=== PATIENT | female | born 1990 | race Caucasian/White ===

== ENCOUNTER 2022-12-26 11:50 | Emergency (ER) | payer OTHER ==
--- OUTSIDE RECORDS SUMMARY | 2022-12-26 11:55 | XMS REPORT | Continuity of Care Document ---
:1990 Author Organization [facility] t Address [address] [place] [address] [address] [place] [address] Care Team Providers Name Role Phone Asked, No Pcp Primary Care Physician Unavailable MD LANDRY PLASCENCIA Attending Clinician Unavailable LANDRY PLASCENCIA Attending Clinician Unavailable SEA DELATORRE Attending Clinician Unavailable Jose L Arambula Attending Clinician BeltranAncelmo Attending Clinician MALLIKA ALFORD Admitting Clinician Unavailable SEA DELATORRE Admitting Clinician Unavailable Problems Condition Condition Condition Status Onset Resolution Last Treating Co mments Source Name Details Category Date Date Treatment Clinician Date Acute Acute Problem Active [facility]: Memoria infection infection 00 l (LUF/LI V/SA) Urinary Urinary Problem Active 2017-[address] [facility] tract tract 2-22 [facility] infectious infectious 00:00: Ms moria disease disease 00 l (LUF/LI V/SA) Toothache Toothache Diagnosis Active 2017-[address] 1[facility]03 [facility] 00:[facility]: Memoria 00 l (LUF/LI V/SA) Dental Dental Diagnosis Active 2017-[address] [facility] abscess abscess 1-03 [facility] Memoria 00 l (LUF/LI V/SA) COUGHING COUGHING Diagnosis Active 2015-042016-03-27 Memoria Active 05-27 12:56:00 l 03/26/2016 00:00: Chet burnham 00 [place] NAUSEA/WEA NAUSEA/WE Diagnosis Active 2013-042014-03-10 Memoria KNESS AKNESS 0-15 14:40:00 l Active 07:00: Harrison 01/22/2014 00 [facility] Bronchitis Bronchiti Problem Resolve 2016-03-29 Memoria (disorder) s d 02:40:08 l (disorder) Chet burnham Resolved Problem 03/29/2016 Pt reports getting bronchitis every year [facility] Cyst of Cyst of Problem Resolve 2016-03-29 M emoria ovary ovary d 02:40:08 l (disorder) (disorder) He rmann Resolved Problem 03/29/2016 [facility] Abscess Abscess Problem Active 2016-03-29 Me moria (disorder) (disorder) 02:40:08 l Active [place] Problem 03/29/2016 [facility] Asthma Asthma Problem Active 2016-03-29 Jerardo katie (disorder) (disorder) 02:40:08 l Active [facility] Problem 03/29/2016 [facility] History of Past Illness Condition Condition Condition Status Onset Resolution Last Treating Co mments Source Name Details Category Date Date Treatment Clinician Date Discharge Discharge Problem 2015-042016-03-29 2016-03-29 Memoria Diagnosis: Diagnosis: 2- 02:40:08 02:40:08 l Elevated Elevated 06:00: Chet burnham blood blood 00 pressure pressure 03/26/2016 6 [facility] Discharge Discharge Problem 2015-042016-03-29 2016-03-29 Memoria Diagnosis: Diagnosis: 2-17 02:40:08 02:40:08 l Wheezing Wheezing 06:00: Chet burnham 03/26/2016 6 [facility] Discharge Discharge Problem 2015-042016-03-29 2016-03-29 Memoria Diagnosis: Diagnosis: 2- 02:40:08 02:40:08 l Cough Cough 06:00: Harrison 03/26/2016 6 [facility] Discharge Discharge Problem 2013-042014-01-26 2014-01-26 Memoria Diagnosis: Diagnosis: 0-16 01:59:23 01:59:23 l 05:00: Lidia cutler 01/23/2014 4 [facility] Discharge Discharge Problem 2013-042014-01-26 2014-01-26 Memoria Diagnosis: Diagnosis: 0-16 01:59:23 01:59:23 l Vomiting Vomiting 05:00: Chet burnham and and 00 diarrhea diarrhea 01/23/2014 01/26/2014 [facility] Discharge Discharge Problem 2013-042014-01-26 2014-01-26 Membrian Diagnosis: Diagnosis: 0-16 01:59:23 01:59:23 l Urinary Urinary 05:00: Harrison tract tract 00 infection infection 01/23/2014 01/26/2014 [facility] Allergies, Adverse Reactions, Alerts This patient has no known allergies or adverse reactions. Social History Social Habit Start Date Stop Date Quantity Comments Source Gender identity [facility] History of tobacco Smokes tobacco [facility] daily [facility] Cigarettes smoked 2020-08-01 2020-08-[address] current (pack per 00:00:00 00:00:00 Hospita l day) - Reported Tobacco use and 2020-08-01 2020-08-01 Smokeless [facility] 00:00:00 00:00:00 tobacco non-user Hospital Alcohol intake 2020-08-01 2020-08-01 Current drinker [facility] 00:00:00 00:00:00 of alcohol Hospital (finding) History of Social 2020-08-01 2020-08-[address] function 00:00:00 00:00:00 Hospital Sex Ass[birth year] At [birth year] [facility] 00:[facility] Smoking Status Start Date Stop Date Source Social History 2016-03-26 22:55:33 [facility] Medications Ordered Filled Start Stop Current Ordering Indication Dosage Frequency Signature Comments Components Source Medication Medication Date Date Medication? Clinician (SIG) Name Name benzonatate 2015-04 Yes 200 mg = 1 Memoria 200 MG Oral 2-17 cap, PO, l Capsule 23:45: TID, X 7 Chet n [Tessalon] 00 day, # 21 cap, 0 Refill(s) 200 ACTUAT 2015-04 Yes 2 puff, Jerardo katie Albuterol 2-17 INHALATION l 0.09 23:44: , QID, # Salley MG/ACTUAT 00 17 gm, 0 Metered Refill(s) Dose Inhaler predniSONE 2015-04 Yes 60 mg = 3 Me moria 20 mg oral 2-17 tab, PO, l tablet 23:44: Daily, Harrison 00 Take 3 tablets for 60 mg dose, X 3 day, # 9 tab, 0 Refill(s) Tylenol 2016-1 No 650 mg, Memoria 2-17 Route: PO, l 22:54: Drug form: Salley 00 TAB, ONCE, Dosing Weight 86.534, kg, Priority: STAT, Start date: 03/26/16 16:54:00 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, Stop date: 03/26/16 16:54:00 CORONER FORENSIC TECHNICIAN Albuterol 2015-04 No Notes: Memori a 0.833 MG/ML 2-17 (Same as: l / 21:28: Duoneb) Salley Ipratropium 00 [place] 0.167 MG/ML Inhalant Solution Sodium 2015-04 No 1,000 mL, Memori a Chloride 2-17 1,000 l 0.154 21:28: ml/hr, Harrison MEQ/ML 00 Infuse Injectable Over: 1 Solution hr, Route: IV, 1,000, Drug form: INJ, ONCE, Priority: STAT, Dosing Weight 86.534 kg, Start date: 03/26/16 15:28:00 CORONER FORENSIC TECHNICIAN, Duration: 1 doses or times, Stop date: 03/26/16 15:28:00 CORONER FORENSIC TECHNICIAN Saline 2015-04 No Notes: Memoria Flush 0.9% -17 (Same as: l 21:28: BD Harrison 00 Posiflush) Ondansetron 2013-04 Yes Special Mem oria 4 MG 0-16 Instructio l Disintegrat 05:18: ns: Chet n ing Tablet 00 Dissolve [Zofran] tab under tongue Nitrofurant 2013-04 Yes 100 mg = 1 Memoria oin 100 MG 0-16 cap, PO, l Oral 05:17: BID, # 14 Harrison Capsule 00 cap, 0 [Macrobid] Refill(s) Ondansetron 2013-04 No 4 mg, Memor ia 0-16 Route: l 02:03: IVP, Drug Salley 00 form: INJ, ONCE, Dosing Weight 84.091, kg, Priority: STAT, Start date: 01/22/14 21:03:00, Stop date: 01/22/14 21:03:00 Cephalexin Cephalexin Yes 500mg BID [facility] (LUF/LI V/SA) Ibuprofen Ibuprofen Yes pain 800mg TID [facility] 800 MG Oral 800 MG Oral L ukes Tablet Tablet Memoria l (LUF/LI V/SA) NITROFURANT NITROFURANT Yes 100mg BID [facility] St OIN, OIN, [facility] MACROCRYSTA MACROCRYSTA M emoria LS 25 MG / LS 25 MG / l Nitrofurant Nitrofurant ( F/LI oin, oin, V/SA) Monohydrate Monohydrate 75 MG Oral 75 MG Oral Capsule Capsule Penicillin Penicillin Yes 500mg QID [facility] V Potassium V Potassium L ukes 500 MG Oral 500 MG Oral M emoria Tablet Tablet l (LUF/LI V/SA) tramadol tramadol Yes pain 50mg QID [facility] hydrochlori hydrochlori L ukes de 50 MG de 50 MG Memoria Oral Tablet Oral Tablet l (LUF/LI V/SA) Immunizations Ordered Immunization Filled Immunization Date Status Commen ts Source Name Name Tdap 2017-10-22 Completed [facility] Vital Signs Vital Name Observation Time Observation Value Comments Source Pulse Rate 2018-04-20 03:54:00 92 /min [facility] (F/YAIMA/SA) Respiratory Rate 2018-04-20 03:54:00 18 /min [facility] ([facility]/YAIMA/SA) O2% BldC Oximetry 2018-04-20 03:54:00 93 % [facility] (F/YAIMA/SA) BP Systolic 2018-04-20 03:54:00 128 mm[Hg] [facility] (F/YAIMA/SA) BP Diastolic 2018-04-20 03:54:00 93 mm[Hg] [facility] (F/YAIMA/SA) Body Temperature 2018-04-19 21:02:00 97.8 F [facility] (F/YAIMA/SA) Height 2018-04-19 21:02:00 67.5 in [facility] (F/YAIMA/SA) Weight Measured 2018-04-19 21:02:00 180.33 lbs [facility] ([facility]/YAIMA/SA) BMI (Body Mass Index) 2018-04-19 21:02:00 27.9 kg/m2 [facility] (F/YAIMA/SA) Pulse Rate 2018-03-31 18:20:00 91 /min [facility] ([facility]/YAIMA/SA) Respiratory Rate 2018-03-31 18:20:00 16 /min [facility] (LUF/YAIMA/SA) Body Temperature 2018-03-31 16:48:00 98.6 F [facility] (LUF/YAIMA/SA) O2% BldC Oximetry 2018-03-31 16:48:00 100 % [facility] (LUF/YAIMA/SA) BP Systolic 2018-03-31 16:48:00 142 mm[Hg] [facility] (LUF/YAIMA/SA) BP Diastolic 2018-03-31 16:48:00 73 mm[Hg] [facility] (LUF/YAIMA/SA) Height 2018-03-31 16:48:00 67 in [facility] (LUF/YAIMA/SA) Weight Measured 2018-03-31 16:48:00 180.55 lbs [facility] (LUF/YAIMA/SA) BMI (Body Mass Index) 2018-03-31 16:48:00 28.3 kg/m2 [facility] (LUF/YAIMA/SA) Body Temperature 2018-02-10 15:12:00 99.1 F [facility] (LUF/YAIMA/SA) Pulse Rate 2018-02-10 15:12:00 89 /min [facility] (LUF/YAIMA/SA) Respiratory Rate 2018-02-10 15:12:00 20 /min [facility] (LUF/YAIMA/SA) O2% BldC Oximetry 2018-02-10 15:12:00 99 % [facility] (LUF/YAIMA/SA) BP Systolic 2018-02-10 15:12:00 133 mm[Hg] [facility] (LUF/YAIMA/SA) BP Diastolic 2018-02-10 15:12:00 80 mm[Hg] [facility] (LUF/YAIMA/SA) Height 2018-02-10 15:12:00 67 in [facility] (LUF/YAIMA/SA) Weight Measured 2018-02-10 15:12:00 180.77 lbs [facility] (LUF/YAIMA/SA) BMI (Body Mass Index) 2018-02-10 15:12:00 28.3 [facility] (LUF/YAIMA/SA) Respitory Rate 2016-03-27 00:36:00 Memori al Salley Systolic (mm Hg) 2016-03-27 00:36:00 Jerardo rial Salley Diastolic (mm Hg) 2016-03-27 00:36:00 Mem orial [place] Temperature Oral (F) 2016-03-27 00:36:00 98.4 F [facility] Heart Rate 2016-03-27 00:36:00 [facility] [place] Systolic (mm Hg) 2016-03-26 23:00:00 Jerardo rial [place] Diastolic (mm Hg) 2016-03-26 23:00:00 Mem orial [place] Respitory Rate 2016-03-26 23:00:00 Memori al [place] Temperature Oral (F) 2016-03-26 23:00:00 99.0 F [facility] [place] Heart Rate 2016-03-26 23:00:00 [facility] [place] Temperature Oral (F) 2016-03-26 21:23:00 100.1 F [facility] Systolic (mm Hg) 2016-03-26 21:23:00 Jerardo rial Harrison Diastolic (mm Hg) 2016-03-26 21:23:00 Mem orial [place] Height 2016-03-26 21:23:00 171.45 cm [facility] [place] Weight 2016-03-26 21:23:00 [facility] [place] Heart Rate 2016-03-26 21:23:00 [facility] [place] Respitory Rate 2016-03-26 21:23:00 Memori al [place] BMI Calculated 2016-03-26 21:23:00 Memori al [place] Heart Rate 2014-01-23 05:06:00 [facility] [place] Systolic (mm Hg) 2014-01-23 05:06:00 Jerardo rial Harrison Diastolic (mm Hg) 2014-01-23 05:06:00 Mem orial [place] Respitory Rate 2014-01-23 05:06:00 Memori al [place] Temperature Oral (F) 2014-01-23 05:06:00 99.7 F [facility] Temperature Oral (F) 2014-01-23 00:05:00 99.2 F [facility] [place] Weight 2014-01-23 00:05:00 [facility] [place] Height 2014-01-23 00:05:00 170.18 cm [facility] [place] BMI Calculated 2014-01-23 00:05:00 Memyamileth wang [place] Diastolic (mm Hg) 2014-01-23 00:05:00 Mem kemar [place] Heart Rate 2014-01-23 00:05:00 [facility] [place] Systolic (mm Hg) 2014-01-23 00:05:00 Jerardo acosta [place] Respitory Rate 2014-01-23 00:05:00 Memori al [place] Procedures This patient has no known procedures. Plan of Care Planned Activity Planned Date Details Comments Source Future Scheduled 2022-12-12 COVID-19 VACCINE (#1) [facility] Test 06:12:36 [code = COVID-19 VACCINE (#1)] Future Scheduled 2022-12-12 Pneumococcal Vaccine: [facility] Test 06:12:36 Pediatrics (0 to 5 Years) and At-Risk Patients (6 to 64 Years) (1 - PCV) [code = Pneumococcal Vaccine: Pediatrics (0 to 5 Years) and At-Risk Patients (6 to 64 Years) (1 - PCV)] Future Scheduled 2022-12-12 Hepatitis C screening [facility] Test 06:12:36 (procedure) [code = 899019640] Future Scheduled 2022-12-12 Screening for [facility] Test 06:12:36 malignant neoplasm of cervix (procedure) [code = 640721662] Future Scheduled 2022-12-12 INFLUENZA VACCINE (#1) [facility] Test 06:12:36 [code = INFLUENZA VACCINE (#1)] Encounters Start End Encounter Admission Attending Care Care Encounter Source Date/Time Date/Time Type Type Clinicians Facility Department ID 2021-01-07 2021-01-07 Outpatient PRIV PRIV [id number] [facility] 00:00:00 00:00:00 [id number] Medica l 2021-01-07 2021-01-07 Outpatient PRIV PRIV [id number] [facility] 00:00:00 00:00:00 [id number] Medica l 2020-08-01 2020-08-01 Emergency [facility] [id number] [place] 00:00:00 00:00:00 LANDRY [place] [facility] 2018-04-19 2018-04-20 UTI SITE E NANDINI, [facility] [id number] [facility] [address] 20:20:00 04:02:00 NOT SEA Us ukes SPECIFIED N, [address], (LUF[place] [address] 2018-03-31 2018-03-31 UTI SITE E LISA, [facility] [id number] 15:50:00 18:24:00 NOT RHONDA Us ukes SPECIFIED N, [address], (LUF/[place] [address] 2018-02-10 2018-02-10 Inpatient SAHIL, [facility] [id number] 14:58:00 16:03:00 CORETTA Us ukes N, [address], (LUF[place] [address] 2017-06-28 2017-07-06 [facility] [id number] [place] 00:00:00 00:00:00 [facility] 2016-03-26 2016-03-27 Emergency [facility] [id number] Memoria 21:03:00 00:39:00 [place] 05 [facility] 2016-03-26 2016-03-26 Outpatient Tyesha [facility] [id number] 15:03:00 18:39:00 Jose L Montes 2014-01-23 2014-01-23 [facility] [id number] Memoria 00:00:00 05:32:00 Emergency r Harrison [facility] 2014-01-22 2014-01-23 Outpatient Ancelmo Beltran [id number] 19:00:00 00:32:00 Min Randall [id number] Results Test Description Test Time Test Comments Results Result Comments Source SARS-CoV-2 (COVID-19) RNA [Presence] in Respiratory sp ecimen by 2020-08-01 20:56:56 BRIEN with probe detection Test Item Value Reference Range Interpretation Comme nts SARS-CoV-2 (COVID-19) RNA [Presence] in Respiratory Not detected No t-Detected specimen by BRIEN with probe detection (test code = 22454-9) Whether patient is employed in a healthcare setting (test code = 73017-8) Whether the patient has symptoms related to condition of interest (test code = 61187-1) Patient was hospitalized because of this condition (test code = 24892-0) Whether the patient was admitted to intensive care unit (ICU) for condition of interest (test code = 06512-4) Whether patient resides in a congregate care setting (test code = 93641-1) [facility], [id number] 10:15:00Specimen: Urine SpecimensCollected: 04/20/2018 03:34 Status: Final Last Updated: 04/22/2018 10:15 Culture Result (Final) (Final) >100,000 cc/mL Gram Negative Bacilli Isolate (Final) (C) (Final) Escherichia coli ESBL Strains of Klebsiella spp., E. coli and Proteus mirabilis thatproduce extended-spectrum B- lactamases (ESBL) may be clinically resistant to therapy with penicillins, cephalosporins, or aztreonam, despiteapparent in vitro susceptibility to some of these agents. MULTI DRUGRESISTANTORGANISM ISOLATED. RECOMMEND ISOLATION PROTOCOL. Amikacin <=2 S Ampicillin >=32 R Ampicillin/Sulbac >=32 R Cefazolin >=64 R Cefepime >=64 R Cefoxitin 32 R Ceftazidime R Ceftriaxone >=64 R Ciprofloxacin 0.5 S Gentamicin <=1 S Levofloxacin 1 S Meropenem <=0.25 S Nitrofurantoin 64 I Tobramycin <=1 S Trimeth/Sulfa >=320 R ESBL Positive +[facility] HospitalCHL[facility]YDIA, GC, TV,PCR, IN [id number] 17:05:00 Test Item Value Reference Range Interpretation Comments FT (test code = CHTR) Not detected (qualifier Not Detected N value) FT (test code = Not detected (qualifier Not Detected N NGONO) value) FT (test code = TRVG) Not detected (qualifier Not Detected N value) [facility] WITH [id number] 02:45:00 Test Item Value Reference Range Interpretation Comments Color (test code = UCOLR) LT. YELLOW Clarity (test code = UCLAR) CLEAR Glucose (test code = UGLUC) NEGATIVE NEGATIVE N Bilirubin (test code = UBILI) NEGATIVE NEGATIVE N Ketones (test code = UKET) NEGATIVE NEGATIVE N Specific Loraine (test code = 1.015 1.005-1.030 A USPGR) Blood (test code = UBLD) LARGE NEGATIVE A PH (test code = UPH) 6.0 4.5-8.0 A Protein (test code = UPROT) TRACE NEGATIVE A Urobilinogen (test code = U UROB) 0.2 >0.2 N Nitrite (test code = UNITR) NEGATIVE NEGATIVE N Leukocyte Esterase (test code = MODERATE NEGATIVE A ULEUK) WBC (test code = WBCUR) TNTC 0-5 A RBC (test code = RBCUR) TNTC 0-5 A Epithial Cells (test code = U EPI) 0-10 0-10 N Bacteria (test code = UBACT) 3+ None Seen,Trace A [facility]WE [id number] 02:43:00Specimen: VaginalCollected: 04/20/2018 02:28 Status: Final Last Updated: 04/20/2018 02:43 [place] (Final) (Final) WBC- MANY OBSERVED No Clue Cells Seen No Yeast or Trichomonas seenAscension St. Michael HospitalPREGNANCY TEST, Urine [id number] 01:57:00 Test Item Value Reference Range Interpretation Comments (Urine) (test code = Negative PREGU) If a specimen is collected by a nurse, then you MUST fill out the Collected and Collected By quintana [facility] URINALYSIS WITH [id number] 18:07:00 Test Item Value Reference Range Interpretation Comments Color (test code = UCOLR) LT. YELLOW Clarity (test code = UCLAR) CLEAR Glucose (test code = UGLUC) NEGATIVE NEGATIVE N Bilirubin (test code = UBILI) NEGATIVE NEGATIVE N Ketones (test code = UKET) NEGATIVE NEGATIVE N Specific [place] (test code = 1.020 1.005-1.030 A USPGR) Blood (test code = UBLD) NEGATIVE NEGATIVE N PH (test code = UPH) 6.0 4.5-8.0 A Protein (test code = UPROT) NEGATIVE NEGATIVE N Urobilinogen (test code = U UROB) 0.2 >0.2 N Nitrite (test code = UNITR) NEGATIVE NEGATIVE N Leukocyte Esterase (test code = Moderate NEGATIVE A ULEUK) WBC (test code = WBCUR) 20-30 0-5 A RBC (test code = RBCUR) 0-5 0-5 N Epithial Cells (test code = U EPI) 0-10 0-10 N Bacteria (test code = UBACT) Trace None Seen,Trace N [facility], Urine [id number] 17:59:00 Test Item Value Reference Range Interpretation Comments (Urine) (test code = Negative PREGU) If a specimen is collected by a nurse, then you MUST fill out the Collected and Collected By quintana [facility] CARDIAC [id number] 22:11:00 Test Item Value Reference Range Interpretation Comments BNP (test code = BNP) 48 [facility]CARD[facility] [id number] 22:11:00 Test Item Value Reference Range Interpretation Comments Troponin-I (test code no gt See_Comment [Auto mated message] The = Troponin-I) system which g enerated this result transmit collette reference range : <=0.40. The reference r gallo was not used to interpr et this result as kerri l/abnormal. [id number] 22:11:00 Test Item Value Reference Range Interpretation Comments CO2 (test code = CO2) 26 24-32 [facility] Hos[id number] 22:11:00 Test Item Value Reference Range Interpretation Comments Calcium Lvl (test code = Calcium Lvl) 9.0 8.5-10.5 [facility] Ho[id number] 22:11:00 Test Item Value Reference Range Interpretation Comments Glucose Lvl (test code = Glucose Lvl) 93 70-99 [facility] Hos[id number] 22:11:00 Test Item Value Reference Range Interpretation Comments BUN (test code = BUN) 6 7-22 [facility] Hos[id number] 22:11:00 Test Item Value Reference Range Interpretation Comments Creatinine Lvl (test code = Creatinine 0.95 0.50-1.40 Lvl) [facility] H[id number] 22:11:00 Test Item Value Reference Range Interpretation Comments Sodium Lvl (test code = Sodium Lvl) 141 135-145 [facility] Ho[id number] 22:11:00 Test Item Value Reference Range Interpretation Comments Potassium Lvl (test code = Potassium 4.0 3.5-5.1 Lvl) [facility] Hos[id number] 22:11:00 Test Item Value Reference Range Interpretation Comments Chloride Lvl (test code = Chloride Lvl) 108 95-109 [facility] Hos[id number] 22:11:00 Test Item Value Reference Range Interpretation Comments eGFR (test code = eGFR) 82 [facility] Hos[id number] 22:11:00 Test Item Value Reference Range Interpretation Comments AGAP (test code = AGAP) 11.0 10.0-20.0 [place] [id number] 22:11:00 Test Item Value Reference Range Interpretation Comments S Preg (test code = S Negative *NA*(03/26/16 Preg) 4:11 PM) [id number] 22:11:00 Test Item Value Reference Range Interpretation Comments Hgb (test code = Hgb) 14.3 12.0-16.0 [facility] MarcosMocxccaGPFKAZQHAE3942-01-18 22:11:00 Test Item Value Reference Range Interpretation Comments Hct (test code = Hct) 42.3 36.0-48.0 [place] [id number] 22:11:00 Test Item Value Reference Range Interpretation Comments RBC (test code = RBC) 4.57 4.20-5.40 [id number] 22:11:00 Test Item Value Reference Range Interpretation Comments WBC (test code = WBC) 7.8 3.7-10.4 [facility] [id number] 22:11:00 Test Item Value Reference Range Interpretation Comments MCH (test code = MCH) 31.2 pg 27.0-31.0 [facility] [id number] 22:11:00 Test Item Value Reference Range Interpretation Comments MCHC (test code = MCHC) 33.8 32.0-36.0 [facility] [id number] 22:11:00 Test Item Value Reference Range Interpretation Comments MCV (test code = MCV) 92.5 80.0-98.0 [facility] [id number] 22:11:00 Test Item Value Reference Range Interpretation Comments MPV (test code = MPV) 7.0 7.4-10.4 [facility] M[id number] 22:11:00 Test Item Value Reference Range Interpretation Comments RDW (test code = RDW) 13.3 11.5-14.5 [facility] [id number] 22:11:00 Test Item Value Reference Range Interpretation Comments Platelet (test code = Platelet) 274 133-450 [facility] [id number] 22:11:00 Test Item Value Reference Range Interpretation Comments Basophils (test code = 0.5 See_Comment [Aut omated message] The Basophils) system which ge nerated this result tra nsmitted reference range : <=1.0. The reference r gallo was not used to int erpret this result as normal/abnormal . [facility] [id number] 22:11:00 Test Item Value Reference Range Interpretation Comments Segs-Bands # (test code = Segs-Bands #) 5.6 1.5-8.1 [facility] [id number] 22:11:00 Test Item Value Reference Range Interpretation Comments Eosinophils # (test code 0.3 See_Comment [A utomated message] The = Eosinophils #) system whic h generated this result tra nsmitted reference range : <=0.5. The reference r gallo was not used to int erpret this result as normal/abnormal . [facility] MarcosYgxaiwsDMUMWHCLBX9280-06-02 22:11:00 Test Item Value Reference Range Interpretation Comments Monocytes # (test code 0.7 See_Comment [Aut omated message] The = Monocytes #) system which generated this result tra nsmitted reference range : <=0.8. The reference r gallo was not used to int erpret this result as normal/abnormal . [facility] [id number] 22:11:00 Test Item Value Reference Range Interpretation Comments Lymphocytes # (test code = Lymphocytes 1.1 1.0-5.5 #) [id number] 22:11:00 Test Item Value Reference Range Interpretation Comments Eosinophils (test code = 3.9 See_Comment [A utomated message] The Eosinophils) system which ge nerated this result tra nsmitted reference range : <=4.0. The reference r gallo was not used to int erpret this result as normal/abnormal . [id number] 22:11:00 Test Item Value Reference Range Interpretation Comments Segs (test code = Segs) 71.7 45.0-75.0 [id number] 22:11:00 Test Item Value Reference Range Interpretation Comments Lymphocytes (test code = Lymphocytes) 14.4 20.0-40.0 [facility]JzsrcmlMQVYDNEHSU7162-09-15 22:11:00 Test Item Value Reference Range Interpretation Comments Monocytes (test code = Monocytes) 9.5 2.0-12.0 [facility] [id number] 22:11:00 Test Item Value Reference Range Interpretation Comments Influ A (test code = Negative (03/26/16 4:11 Influ A) PM) [facility] [id number] 22:11:00 Test Item Value Reference Range Interpretation Comments Influ B (test code = Negative (03/26/16 4:11 Influ B) PM) [id number] 03:00:00 Test Item Value Reference Range Interpretation Comments hCG Tot (test code = hCG Tot) 1012 [facility] [id number] 02:25:18 Test Item Value Reference Range Interpretation Comments UA Trans Epi (test code = UA Trans Epi) FEW [facility] [id number] 02:25:18 Test Item Value Reference Range Interpretation Comments UA Bacteria (test code = UA Few /HPF Bacteria) [facility] [id number] 02:25:18 Test Item Value Reference Range Interpretation Comments UA RBC (test code = 2 See_Comment [Automa collette message] The UA RBC) system which ge nerated this result transmit collette reference range : <=2. The reference range was not used to interpr et this result as kerri l/abnormal. [facility] [id number] 02:25:18 Test Item Value Reference Range Interpretation Comments UA Mucus (test code = UA Mucus) Many /LPF [facility] [id number] 02:25:18 Test Item Value Reference Range Interpretation Comments UA Sq Epi (test code = UA Sq Epi) Many /LPF [facility] [id number] 02:25:18 Test Item Value Reference Range Interpretation Comments UA WBC (test code = 8 See_Comment [Automa collette message] The UA WBC) system which ge nerated this result transmit collette reference range : <=5. The reference range was not used to interpr et this result as kerri l/abnormal. [facility] AND [id number] 02:25:18 Test Item Value Reference Range Interpretation Comments UA Leuk Est (test code Trace *ABN*(01/22/14 = UA Leuk Est) 9:25 PM) [facility] [id number] 02:25:18 Test Item Value Reference Range Interpretation Comments UA Nitrite (test code Negative (01/22/14 9:25 = UA Nitrite) PM) [facility] AND [id number] 02:25:18 Test Item Value Reference Range Interpretation Comments UA Blood (test code = Negative (01/22/14 9:25 UA Blood) PM) [facility] AND [id number] 02:25:18 Test Item Value Reference Range Interpretation Comments UA Urobilinogen (test code = UA 2.0 0.1-1.0 Urobilinogen) [facility] AND [id number] 02:25:18 Test Item Value Reference Range Interpretation Comments UA Ketones (test code = UA Ketones) 80 mg/dL [facility] AND [id number] 02:25:18 Test Item Value Reference Range Interpretation Comments UA Bili (test code = Negative *NA*(01/22/14 UA Bili) 9:25 PM) [facility] AND [id number] 02:25:18 Test Item Value Reference Range Interpretation Comments UA Glucose (test code = UA Negative mg/dL Glucose) [facility] AND [id number] 02:25:18 Test Item Value Reference Range Interpretation Comments UA Protein (test code = UA Protein) 100 mg/dL [facility] [id number] 02:25:18 Test Item Value Reference Range Interpretation Comments UA pH (test code = UA pH) 6.0 5.0-8.0 [facility] [id number] 02:25:18 Test Item Value Reference Range Interpretation Comments UA Spec Grav (test code = UA Spec Grav) 1.032 [facility] [id number] 02:25:18 Test Item Value Reference Range Interpretation Comments UA Turbidity (test code Slight *ABN*(01/22/14 = UA Turbidity) 9:25 PM) [facility] [id number] 02:25:18 Test Item Value Reference Range Interpretation Comments UA Color (test code = Yellow *NA*(01/22/14 UA Color) 9:25 PM) [facility] [id number] 02:25:18 Test Item Value Reference Range Interpretation Comments U Preg (test code = U Positive *ABN*(01/22/14 Preg) 9:25 PM) [facility] [id number] 01:15:42 Test Item Value Reference Range Interpretation Comments CDC HIV 4th GEN (test Negative (01/22/14 8:15 code = CDC HIV 4th PM) GEN) [facility] [id number] 01:15:00 Test Item Value Reference Range Interpretation Comments AGAP (test code = AGAP) 16.1 10.0-20.0 [facility] [id number] 01:15:00 Test Item Value Reference Range Interpretation Comments A/G Ratio (test code = A/G Ratio) 1.4 0.7-1.6 [facility] [id number] 01:15:00 Test Item Value Reference Range Interpretation Comments Globulin (test code = Globulin) 3.2 2.0-4.0 [facility] [id number] 01:15:00 Test Item Value Reference Range Interpretation Comments MCHC (test code = MCHC) 33.8 32.0-36.0 [facility] [id number] 01:15:00 Test Item Value Reference Range Interpretation Comments MCH (test code = MCH) 30.5 pg 27.0-31.0 [id number] 01:15:00 Test Item Value Reference Range Interpretation Comments RDW (test code = RDW) 14.2 11.5-14.5 [facility] [place]c[id number] 01:15:00 Test Item Value Reference Range Interpretation Comments MCV (test code = MCV) 90.5 80.0-98.0 [facility] [id number] 01:15:00 Test Item Value Reference Range Interpretation Comments Hgb (test code = Hgb) 14.7 12.0-16.0 [facility] [place]cosXrwbbqaLGVZFBAPCH1145-66-90 01:15:00 Test Item Value Reference Range Interpretation Comments Hct (test code = Hct) 43.5 36.0-48.0 [facility] [place]cosCcpxkesYSAZBZSTTA0307-29-01 01:15:00 Test Item Value Reference Range Interpretation Comments WBC (test code = WBC) 12.2 3.7-10.4 [facility] [id number] 01:15:00 Test Item Value Reference Range Interpretation Comments RBC (test code = RBC) 4.81 4.20-5.40 [facility] [place]c[id number] 01:15:00 Test Item Value Reference Range Interpretation Comments Platelet (test code = Platelet) 378 133-450 [facility] [id number] 01:15:00 Test Item Value Reference Range Interpretation Comments MPV (test code = MPV) 7.8 7.4-10.4 [facility] [id number] 01:15:00 Test Item Value Reference Range Interpretation Comments Basophils # (test code 0.1 See_Comment [Aut omated message] The = Basophils #) system which generated this result tra nsmitted reference range : <=0.2. The reference r gallo was not used to int erpret this result as normal/abnormal . [facility] [id number] 01:15:00 Test Item Value Reference Range Interpretation Comments Lymphocytes (test code = Lymphocytes) 18.1 20.0-40.0 [facility] [id number] 01:15:00 Test Item Value Reference Range Interpretation Comments Segs (test code = Segs) 71.9 45.0-75.0 [facility] [id number] 01:15:00 Test Item Value Reference Range Interpretation Comments Eosinophils # (test code 0.1 See_Comment [A utomated message] The = Eosinophils #) system whic h generated this result tra nsmitted reference range : <=0.5. The reference r gallo was not used to int erpret this result as normal/abnormal . [facility] [place]cosJlqdjnbLCMXIBPRHL2728-25-30 01:15:00 Test Item Value Reference Range Interpretation Comments Lymphocytes # (test code = Lymphocytes 2.2 1.0-5.5 #) [facility] [id number] 01:15:00 Test Item Value Reference Range Interpretation Comments Monocytes # (test code 1.1 See_Comment [Aut omated message] The = Monocytes #) system which generated this result tra nsmitted reference range : <=0.8. The reference r gallo was not used to int erpret this result as normal/abnormal . [facility] [id number] 01:15:00 Test Item Value Reference Range Interpretation Comments Eosinophils (test code = 0.6 See_Comment [A utomated message] The Eosinophils) system which ge nerated this result tra nsmitted reference range : <=4.0. The reference r gallo was not used to int erpret this result as normal/abnormal . [facility] [id number] 01:15:00 Test Item Value Reference Range Interpretation Comments Monocytes (test code = Monocytes) 9.0 2.0-12.0 [facility] [id number] 01:15:00 Test Item Value Reference Range Interpretation Comments Basophils (test code = 0.4 See_Comment [Aut omated message] The Basophils) system which ge nerated this result tra nsmitted reference range : <=1.0. The reference r gallo was not used to int erpret this result as normal/abnormal . [facility] [place]c[id number] 01:15:00 Test Item Value Reference Range Interpretation Comments Segs-Bands # (test code = Segs-Bands #) 8.8 1.5-8.1 [facility]2014-10-16 01:15:00 Test Item Value Reference Range Interpretation Comments Lipase Lvl (test code = Lipase Lvl) 120 73-393 [facility]2014-10-16 01:15:00 Test Item Value Reference Range Interpretation Comments BUN (test code = BUN) 12 7-22 [facility]2014-10-16 01:15:00 Test Item Value Reference Range Interpretation Comments CO2 (test code = CO2) 23 24-32 [facility]2014-10-16 01:15:00 Test Item Value Reference Range Interpretation Comments Albumin Lvl (test code = Albumin Lvl) 4.4 3.5-5.0 [facility]2014-10-16 01:15:00 Test Item Value Reference Range Interpretation Comments Total Protein (test code = Total 7.6 6.4-8.4 Protein) [facility]2014-10-16 01:15:00 Test Item Value Reference Range Interpretation Comments Bili Total (test code = Bili Total) 0.3 0.2-1.3 [facility]2014-10-16 01:15:00 Test Item Value Reference Range Interpretation Comments Glucose Lvl (test code = Glucose Lvl) 93 70-99 [facility]2014-10-16 01:15:00 Test Item Value Reference Range Interpretation Comments eGFR (test code = eGFR) 121 [facility]2014-10-16 01:15:00 Test Item Value Reference Range Interpretation Comments Creatinine Lvl (test code = Creatinine 0.7 0.5-1.4 Lvl) [place] [id number] 01:15:00 Test Item Value Reference Range Interpretation Comments Alk Phos (test code = Alk Phos) 82 39-136 [facility]2014-10-16 01:15:00 Test Item Value Reference Range Interpretation Comments AST (test code = AST) 46 See_Comment [Auto mated message] The system which ge nerated this result transmit collette reference range : <=37. The reference range was not used to interpr et this result as kerri l/abnormal. [place] [id number] 01:15:00 Test Item Value Reference Range Interpretation Comments ALT (test code = ALT) 126 See_Comment [Auto mated message] The system which ge nerated this result transmit collette reference range : <=65. The reference range was not used to interpr et this result as kerri l/abnormal. [facility]2014-10-16 01:15:00 Test Item Value Reference Range Interpretation Comments Chloride Lvl (test code = Chloride Lvl) 102 95-109 [facility] [id number] 01:15:00 Test Item Value Reference Range Interpretation Comments Potassium Lvl (test code = Potassium 4.1 3.5-5.1 Lvl) [facility]2014-10-16 01:15:00 Test Item Value Reference Range Interpretation Comments Sodium Lvl (test code = Sodium Lvl) 137 135-145 [facility]2014-10-16 01:15:00 Test Item Value Reference Range Interpretation Comments Calcium Lvl (test code = Calcium Lvl) 9.3 8.5-10.5 [facility] [id number] 01:15:00 Test Item Value Reference Range Interpretation Comments B/C Ratio (test code = B/C Ratio) 17 6-25 [facility] Notes Date/Time Note Provider Source 2018-04-20 [facility] 04:02:00-00:00 Discharge Instructions 2 (LUF/LI V/SA) Discharge Diagnosis UTI Important Information Consult your physician or re turn to the Emergency Department immediately if worse, if not better as expected, or if any problems arise. Follow Up Care Yes Important Information Please understand that you have received care on ly on an emergency basis. If your condition does not i mprove, you should call your personal physician for follow-up care. If you do not have a physician, you may call the referred physician listed. If you have questions about your care or these discharge instructions, you may call the Emergency Department. Please take your discharge paperwork with you to any follow-up appointments. Follow Up Care Patient To Schedule Follow-Up With: Primary Care Physician Follow-Up Notes: Follow up with PCP and take all medications as directed and until complete for antibiotics. Activity Level As tolerated, unrestricted Diet Regular Prescriptions Given Via: Beelinebid Printed and given to patient/caregiver. Patient Teaching Patient education provided Antimicrobial Stewardship Patient Education 2018-03-31 [facility] 18:24:00-00:00 Discharge Instructions 2 (LUF/LI V/SA) Discharge Diagnosis uti Important Information Consult your physician or re turn to the Emergency Department immediately if worse, if not better as expected, or if any problems arise. Follow Up Care Yes Important Information Please understand that you have received care on ly on an emergency basis. If your condition does not i mprove, you should call your personal physician for follow-up care. If you do not have a physician, you may call the referred physician listed. If you have questions about your care or these discharge instructions, you may call the Emergency Department. Please take your discharge paperwork with you to any follow-up appointments. Follow Up Care Patient To Schedule Follow-Up With: Primary Care Physician Activity Level As tolerated, unrestricted Diet Regular Prescriptions Given Via: Printed and given to patient/caregiver. Patient Teaching Patient education provided 2018-02-10 JASMIN [facility] 16:03:00-00:00 Discharge Instructions 2 (LUF/LI V/SA) Discharge Diagnosis dental carries Important Information Consult your physician or re turn to the Emergency Department immediately if worse, if not better as expected, or if any problems arise. Follow Up Care Yes Important Information Please understand that you have received care on ly on an emergency basis. If your condition does not i mprove, you should call your personal physician for follow-up care. If you do not have a physician, you may call the referred physician listed. If you have questions about your care or these discharge instructions, you may call the Emergency Department. Please take your discharge paperwork with you to any follow-up appointments. Follow-Up With: Primary Care Physician Activity Level As tolerated, unrestricted Diet Regular Prescriptions Given Via: Printed and given to patient/caregiver. Patient Teaching Patient education provided 2016-03-26 Clinical Indication: Dyspnea; chest pain, shortn ess of breath [facility] 15:20:00-00:00 Comparison: None FINDINGS: The PA and lateral chest rad iographs shows normal lung volumes without interstitial or airspace opacities, pleural effusions or pneumothorax. The heart size and pulmonary vasculature are normal. The trachea is midline. There are no clinically significant osseous abnormalities noted. IMPRESSION: No chest radiographic evidence of acute cardiopu lmonary disease. SL: [id number]
--- NOTE | 2022-12-26 12:59 | ER ---
Nurse's Notes [facility] Name: Justina Welch Age: 32 yrs Sex: Female : 1990 Arrival Date: 12/26/2022 Time: 11:50 Bed 20 Private MD: Diagnosis: Pilonidal cyst and sinus without abscess Presentation: 12/26 12:08 Chief complaint: Patient states: bump to sacrum that started a few weeks ago but has me1 enlarged in the last few days and the pain is worse. Coronavirus screen: Vaccine status: Patient reports being unvaccinated. Ebola Screen: No symptoms or risks identified at this time. Initial Sepsis Screen: Does the patient meet any 2 criteria? HR > 90 bpm. No. Patient's initial sepsis screen is negative. Does the patient have a suspected source of infection? Yes: Skin breakdown/wound. Risk Assessment: Do you want to hurt yourself or someone else? Patient reports no desire to harm self or others. Risk Assessment: Do you want to hurt yourself or someone else? Patient reports no desire to harm self or others. Onset of symptoms is unknown. 12:08 Method Of Arrival: Ambulatory wi1 12:08 Acuity: BROOKE 4 me1 Triage Assessment: 12:10 General: Appears uncomfortable, well groomed, well developed, well nourished, Behavior me1 is calm, cooperative, appropriate for age. Pain: Complains of pain in sacrum Pain does not radiate. Pain currently is 10 out of 10 on a pain scale. Quality of pain is described as sharp, shooting, Pain began gradually, a few weeks. Neuro: Level of Consciousness is awake, alert, obeys commands, Oriented to person, place, time, situation, Appropriate for age. Cardiovascular: Capillary refill < 3 seconds Patient's skin is warm and dry. Respiratory: Airway is patent Respiratory effort is even, unlabored, Respiratory pattern is regular, symmetrical. Derm: Reports knot to sacral area that started a few weeks ago but has enlarged and become more painful. Musculoskeletal: No deficits noted. 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 - Social history:: Smoking status: Patient reports the use of cigarette tobacco products, smokes one-half pack cigarettes per day, Reported history of juuling and/or vaping. Screenin:15 [facility] ED Fall Risk Assessment (Adult) Score/Fall Risk Level 0 - 2 = Low Risk. Abuse eh3 screen: Denies threats or abuse. Denies injuries from another. Nutritional screening: No deficits noted. Tuberculosis screening: No symptoms or risk factors identified. Assessment: 12:15 General: Appears in no apparent distress. uncomfortable, Behavior is cooperative, eh3 appropriate for age. Pain: Complains of pain in coccyx and gluteal cleft. Neuro: Level of Consciousness is awake, alert, obeys commands, Oriented to person, place, time, situation. Cardiovascular: Capillary refill < 3 seconds Patient's skin is warm and dry. Respiratory: Airway is patent Respiratory effort is even, unlabored, Respiratory pattern is regular, symmetrical. GI: Abdomen is round non-distended. Derm: Skin is pink, warm \T\ dry. Musculoskeletal: Circulation, motion, and sensation intact. Range of motion: intact in all extremities. Vital Signs: 12:08 BP 105 / 85; Pulse 105; Resp 18; Temp 99.2(O); Pulse Ox 99% on R/A; Weight 72.57 kg; me1 Height 5 ft. 7 in. ; Pain 9/10; 12:08 Body Mass Index 25.06 (72.57 kg, 170.18 cm) me1 12:08 Pain Scale: Adult wi1 ED Course: 11:53 Patient arrived in ED. mr 11:55 Jeramy Mims DO is Attending Physician. ms3 11:55 Macie Clements FNP-C [facility] snw 12:10 Triage completed. me1 12:10 Arm band placed on Patient placed in waiting room. me1 12:15 Patient has correct armband on for positive identification. Placed in gown. Bed in low eh3 position. Call light in reach. Side rails up X2. Provided Education on: Use of call huerta. bus driver/monitor on. Pulse ox on. 12:28 Kaitlyn Smith, SANDOVAL is Primary Nurse. eh3 12:58 Fernando Koenig MD is Referral Physician. snw 13:14 No provider procedures requiring assistance completed. Patient did not have IV access jl7 during this emergency room visit. Administered Medications: 13:13 Drug: HYDROcodone-acetaminophen PO 5 mg-325 mg 1 tabs PO once Route: PO; jl7 13:15 Follow up: Response: Medication administered at discharge. jl7 13:13 Drug: Doxycycline PO 100 mg PO once Route: PO; jl7 13:14 Follow up: Response: Medication administered at discharge. jl7 13:13 Drug: Promethazine PO 25 mg PO once Route: PO; jl7 13:14 Follow up: Response: Medication administered at discharge. jl7 Medication: 13:14 VIS not applicable for this client. jl7 Outcome: 12:58 Discharge ordered by . snw 13:14 Discharged to home ambulatory, jl7 13:14 Condition: stable 13:14 Discharge instructions given to patient, Instructed on discharge instructions, follow up and referral plans. medication usage, Demonstrated understanding of instructions, follow-up care, medications, Prescriptions given X 2, 13:15 Patient left the ED. jl7 Signatures: Macie Clements, CLOTH MEASURER MACHINE-C CLOTH MEASURER MACHINE-Csnw FranzKatherine mr GarayGregg, RN RN jl7 Jeramy Mims DO DO ms3 Kaitlyn Smith, RN RN eh3 Ledy Clancy, SANDOVAL RN me1
--- NOTE | 2022-12-26 12:59 | EDPHYS ---
Physician Documentation [facility] Name: Justina Welch Age: 32 yrs Sex: Female : 1990 Arrival Date: 12/26/2022 Time: 11:50 Bed 20 Private MD: ED Physician Jeramy Mims HPI: 12/26 13:58 This 32 yrs old Female presents to ER via Ambulatory with complaints of Back Pain. snw 13:58 The patient presents with pain that is acute, with no known mechanism of injury. The snw symptoms are located in the coccyx area. Onset: The symptoms/episode began/occurred acutely, and became persistent. The pain does not radiate. Associated signs and symptoms: Pertinent positives: none. The problem was sustained hx of pilonidal cyst. Severity of symptoms: At their worst the symptoms were moderate, severe. The patient has experienced similar episodes in the past, several times. The patient has not recently seen a physician. pt states she hopes she came fast enough that we would not need to cut abscess open. 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 - Social history:: Smoking status: Patient reports the use of cigarette tobacco products, smokes one-half pack cigarettes per day, Reported history of juuling and/or vaping. ROS: 13:58 Constitutional: Negative for fever, chills, and weight loss, Eyes: Negative for injury, snw pain, redness, and discharge, ENT: Negative for injury, pain, and discharge, Neck: Negative for injury, pain, and swelling, Cardiovascular: Negative for chest pain, palpitations, and edema, Respiratory: Negative for shortness of breath, cough, wheezing, and pleuritic chest pain, Abdomen/GI: Negative for abdominal pain, nausea, vomiting, diarrhea, and constipation, Back: Negative for injury and pain, : Negative for injury, bleeding, discharge, and swelling, MS/Extremity: Negative for injury and deformity, Neuro: Negative for headache, weakness, numbness, tingling, and seizure, Psych: Negative for depression, anxiety, suicide ideation, homicidal ideation, and hallucinations, 13:58 Skin: Positive for abscess, of the coccyx, Exam: 13:52 Constitutional: This is a well developed, well nourished patient who is awake, alert, snw and in no acute distress. Head/Face: Normocephalic, atraumatic. Eyes: Pupils equal round and reactive to light, extra-ocular motions intact. Lids and lashes normal. Conjunctiva and sclera are non-icteric and not injected. Cornea within normal limits. Periorbital areas with no swelling, redness, or edema. ENT: Nares patent. No nasal discharge, no septal abnormalities noted. Tympanic membranes are normal and external auditory canals are clear. Oropharynx with no redness, swelling, or masses, exudates, or evidence of obstruction, uvula midline. Mucous membranes moist. Neck: Trachea midline, no thyromegaly or masses palpated, and no cervical lymphadenopathy. Supple, full range of motion without nuchal rigidity, or vertebral point tenderness. No Meningismus. Chest/axilla: Normal chest wall appearance and motion. Nontender with no deformity. No lesions are appreciated. Cardiovascular: Regular rate and rhythm with a normal S1 and S2. No gallops, murmurs, or rubs. Normal PMI, no JVD. No pulse deficits. Respiratory: Lungs have equal breath sounds bilaterally, clear to auscultation and percussion. No rales, rhonchi or wheezes noted. No increased work of breathing, no retractions or nasal flaring. Abdomen/GI: Soft, non-tender, with normal bowel sounds. No distension or tympany. No guarding or rebound. No evidence of tenderness throughout. Back: No spinal tenderness. No costovertebral tenderness. Full range of motion. MS/ Extremity: Pulses equal, no cyanosis. Neurovascular intact. Full, normal range of motion. Neuro: Awake and alert, GCS 15, oriented to person, place, time, and situation. Cranial nerves II-XII grossly intact. Motor strength 5/5 in all extremities. Sensory grossly intact. Cerebellar exam normal. Normal gait. Psych: Awake, alert, with orientation to person, place and time. Behavior, mood, and affect are within normal limits. 13:52 Skin: Appearance: normal except for affected area, induration, that is moderate is noted, located on the gluteal cleft, 13:52 Neuro: Exam negative for acute changes, Vital Signs: 12:08 BP 105 / 85; Pulse 105; Resp 18; Temp 99.2(O); Pulse Ox 99% on R/A; Weight 72.57 kg; me1 Height 5 ft. 7 in. ; Pain 9/10; 12:08 Body Mass Index 25.06 (72.57 kg, 170.18 cm) fl1 12:08 Pain Scale: Adult me1 MDM: 12:12 Patient medically screened. snw 14:00 Differential diagnosis: Osteomyelitis ruptured disc, spinal injury, sprain, pilonidal snw cyst. Data reviewed: vital signs, nurses notes. I considered the following discharge prescriptions or medication management in the emergency department Medications were administered in the Emergency Department. See MAR. Counseling: I had a detailed discussion with the patient and/or guardian regarding the historical points, exam findings, and any diagnostic results supporting the discharge/admit diagnosis, the need for outpatient follow up, for definitive care, to return to the emergency department if symptoms worsen or persist or if there are any questions or concerns that arise at home. Special discussion: I discussed in detail with the patient the higher chance of wound infection based on his presenting history. Based on the history and exam findings, there is no indication for further emergent testing or inpatient evaluation. I discussed with the patient/guardian the need to see the general surgeon for further evaluation of the symptoms. I discussed with the patient/guardian the need to see the primary care provider for further evaluation of the symptoms. Administered Medications: 13:13 Drug: HYDROcodone-acetaminophen PO 5 mg-325 mg 1 tabs PO once Route: PO; jl7 13:15 Follow up: Response: Medication administered at discharge. jl7 13:13 Drug: Doxycycline PO 100 mg PO once Route: PO; jl7 13:14 Follow up: Response: Medication administered at discharge. jl7 13:13 Drug: Promethazine PO 25 mg PO once Route: PO; jl7 13:14 Follow up: Response: Medication administered at discharge. jl7 Disposition: 16:13 I was immediately available on-site in the Emergency Department for consultation in the in3 care of the patient. Disposition Summary: 12/26/22 12:58 Discharge Ordered Notes: Location: Home snw Condition: Stable snw Diagnosis - Pilonidal cyst and sinus without abscess snw Followup: snw - With: Emergency Department - When: As needed - Reason: Worsening of condition Followup: snw - With: Fernando Koenig MD - When: 2 - 3 days - Reason: Recheck today's complaints, Continuance of care, Re-evaluation by your physician Discharge Instructions: - Discharge Summary Sheet snw - Pilonidal Cyst snw - Pilonidal Cyst Removal snw Forms: - Medication Reconciliation Form snw - Thank You Letter snw - Antibiotic Education snw - Prescription Opioid Use snw - Patient Portal Instructions snw - Leadership Thank You Letter snw Prescriptions: - Doxycycline Hyclate 100 mg Oral Tablet - take 1 tablet by ORAL route every 12 hours; 20 tablet; Refills: 0, Product snw Selection Permitted - Tramadol 50 mg Oral Tablet - take 1 tablet by ORAL route every 8 hours as needed; 12 tablet; Refills: 0, snw Product Selection Permitted Signatures: Macie Clements, COMMUNITY SERVICES MANAGER-C COMMUNITY SERVICES MANAGER-Csnw Gregg Garay, RN RN jl7 Jeramy Mims DO DO ms3 Ledy Clancy, RN RN me1
[2022-12-26] MEDS ORDERED: PROMETHAZINE 25 MG TABLET ONE (13:19)
[2022-12-26] MEDS ORDERED: HYDROCODONE/APAP 5/325 MG TAB ONE (13:19)
[2022-12-26] MEDS ORDERED: DOXYCYCLINE 100 MG CAP PO ONE (13:19)
== END 2022-12-26 13:15 | disposition home or self-care (01) ==
LOC: ER 11:50
DX: L05.91 Pilonidal cyst without abscess (principal); F17.210 Nicotine dependence, cigarettes, uncomplicated
CPT/HCPCS: 99284; Q0169

== ENCOUNTER 2023-02-06 11:06 | Emergency (ER) | payer OTHER ==
--- OUTSIDE RECORDS SUMMARY | 2023-02-06 11:10 | XMS REPORT | Continuity of Care Document ---
:1990 Author Organization [facility] t Address [address] [place] [address] Care Team Providers Name Role Phone PCP, PATIENT DOES NOT HAVE A Primary Care Physician UnavailSALEEM Lowery Attending Clinician Unavailable Saleem Ramires Attending Clinician MD LANDRY PLASCENCIA Attending Clinician Unavailable LANDRY PLASCENCIA Attending Clinician Unavailable SEA DELATORRE Attending Clinician Unavailable Jose L Arambula Attending Clinician Ancelmo Beltran Attending Clinician MALLIKA ALFORD Admitting Clinician Unavailable SEA DELATORRE Admitting Clinician Unavailable Payers Payer Name Policy Type Policy Number Effective Date Expiration Date [facility] [id number] 2023 CHOICE [place] STAR 00:00:00 Problems Condition Condition Condition Status Onset Resolution Last Treating Co mments Source Name Details Category Date Date Treatment Clinician Date Acute Acute Problem Active [facility] 00:[facility]: [facility] infection infection 00 l (LUF/LI V/SA) Urinary Urinary Problem Active 2017-[address] [facility] tract tract 2-22 [facility] infectious infectious 00:00: Me moria disease disease 00 l (LUF/LI V/SA) Toothache Toothache Diagnosis Active 2017-[address] 1[facility]03 [facility] 00:[facility]: [facility] 00 l (LUF/LI V/SA) Dental Dental Diagnosis Active 2017-[address] [facility] abscess abscess 1-03 [facility] 00:[facility]: [facility] 00 l (LUF/LI V/SA) COUGHING COUGHING Diagnosis Active 2015-042016-03-27 Memoria Active 05-27 12:56:00 l 03/26/2016 00:00: Chet burnham [address] NAUSEA/WEA NAUSEA/WE Diagnosis Active 2013-042014-03-10 Memoria MIRIAN AKNESS 0-15 14:40:00 l Active 07:00: [place] 01/22/2014 00 [facility] Bronchitis Bronchiti Problem Resolve 2016-03-29 Memoria (disorder) s d 02:40:08 l (disorder) Chet burnham Resolved Problem 03/29/2016 Pt reports getting bronchitis every year [facility] Cyst of Cyst of Problem Resolve 2016-03-29 M emoria ovary ovary d 02:40:08 l (disorder) (disorder) He rmann Resolved Problem 03/29/2016 [facility] Abscess Abscess Problem Active 2016-03-29 Me moria (disorder) (disorder) 02:40:08 l Active [place] Problem 03/29/2016 [facility] Asthma Asthma Problem Active 2016-03-29 Jerardo katie (disorder) (disorder) 02:40:08 l Active [place] Problem 03/29/2016 [facility] History of Past Illness Condition Condition Condition Status Onset Resolution Last Treating Co mments Source Name Details Category Date Date Treatment Clinician Date Discharge Discharge Problem 2015-042016-03-29 2016-03-29 Memoria Diagnosis: Diagnosis: 2- 02:40:08 02:40:08 l Elevated Elevated 06:00: Chet burnham blood blood 00 pressure pressure 03/26/2016 03/29/2016 [facility] Discharge Discharge Problem 2015-042016-03-29 2016-03-29 Memoria Diagnosis: Diagnosis: 2- 02:40:08 02:40:08 l Wheezing Wheezing 06:00: Chet burnham 03/26/2016 00 6 [facility] Discharge Discharge Problem 2015-042016-03-29 2016-03-29 Memoria Diagnosis: Diagnosis: 2- 02:40:08 02:40:08 l Cough Cough 06:00: [place] 03/26/2016 00 6 [facility] Discharge Discharge Problem 2013-042014-01-26 2014-01-26 Memoria Diagnosis: Diagnosis: 0-16 01:59:23 01:59:23 l 05:00: Herm he 01/23/2014 00 4 [facility] Discharge Discharge Problem 2013-042014-01-26 2014-01-26 Carrillo Diagnosis: Diagnosis: 0-16 01:59:23 01:59:23 l Vomiting Vomiting 05:00: Chet n and and 00 diarrhea diarrhea 01/23/2014 01/26/2014 [facility] Discharge Discharge Problem 2013-042014-01-26 2014-01-26 Carrillo Diagnosis: Diagnosis: 0-16 01:59:23 01:59:23 l Urinary Urinary 05:00: [place] tract tract 00 infection infection 01/23/2014 01/26/2014 [facility] Allergies, Adverse Reactions, Alerts Allergy Allergy Status Severity Reaction(s) Onset Inactive Treating Comm ents Source Name Type Date Date Clinician NO KNOWN Drug Active Univers ALLERGIE Class ity of [facility] Social History Social Habit Start Date Stop Date Quantity Comments Source [facility] of tobacco [facility]igarette [facility] History of Social 2020-08-01 2020-08-[address] function 00:00:00 00:00:00 Hospital Cigarettes smoked 2020-08-01 2020-08-[address] current (pack per 00:00:00 00:00:00 Hospita l day) - Reported Alcohol intake 2020-08-01 2020-08-01 Current drinker [facility] 00:00:00 00:00:00 of alcohol Hospital (finding) Tobacco use and 2020-08-01 2020-08-01 Smokeless [facility] 00:00:00 00:00:00 tobacco non-user Hospital Sex Assigned At [birth year] [facility] 00[facility] Smoking Status Start Date Stop Date Source Tobacco smoking consumption [facility] Social History 2016-03-26 22:55:33 [facility] Medications Ordered Filled Start Stop Current Ordering Indication Dosage Frequency Signature Comments Components Source Medication Medication Date Date Medication? Clinician (SIG) Name Name oseltamivir 2022-04 Yes [id number] 75mg Take 1 [facility] (TAMIFLU) 0-29 capsule by ity of 75 mg 00:00: mouth in [place] capsule the Medical morning Branch and 1 capsule in the evening. benzonatate 2015-04 Yes 200 mg = 1 Memoria 200 MG Oral 2-17 cap, PO, l Capsule 23:45: TID, X 7 Chet n [Tessalon] 00 day, # 21 cap, 0 Refill(s) 200 ACTUAT 2015-04 Yes 2 puff, Jerardo katie Albuterol 2-17 INHALATION l 0.09 23:44: , QID, # [place] MG/ACTUAT 00 17 gm, 0 Metered Refill(s) Dose Inhaler predniSONE 2015-04 Yes 60 mg = 3 Me moria 20 mg oral 2-17 tab, PO, l tablet 23:44: Daily, [place] 00 Take 3 tablets for 60 mg dose, X 3 day, # 9 tab, 0 Refill(s) Tylenol 2015-04 No 650 mg, Memoria 2-17 Route: PO, l 22:54: Drug form: [place] 00 TAB, ONCE, Dosing Weight 86.534, kg, Priority: STAT, Start date: 03/26/16 16:54:00 FRUIT PACKER, Stop date: 03/26/16 16:54:00 FRUIT PACKER Albuterol 2015-04 No Notes: Memori a 0.833 MG/ML -17 (Same as: l / 21:28: Duoneb) [place] Ipratropium 00 [place] 0.167 MG/ML Inhalant Solution Sodium 2015-04 No 1,000 mL, Memori a Chloride 2-17 1,000 l 0.154 21:28: ml/hr, [place] MEQ/ML 00 Infuse Injectable Over: 1 Solution hr, Route: IV, 1,000, Drug form: INJ, ONCE, Priority: STAT, Dosing Weight 86.534 kg, Start date: 03/26/16 15:28:00 FRUIT PACKER, Duration: 1 doses or times, Stop date: 03/26/16 15:28:00 FRUIT PACKER Saline 2015-04 No Notes: Memoria Flush 0.9% 2-17 (Same as: l 21:28: BD [place] 00 Posiflush) Ondansetron 2013-04 Yes Special Mem [...] ia 0-16 Route: l 02:03: IVP, Drug [place] form: INJ, ONCE, Dosing Weight 84.091, kg, Priority: STAT, Start date: 01/22/14 21:03:00, Stop date: 01/22/14 21:03:00 Ibuprofen Ibuprofen Yes pain 800mg TID [facility] 800 MG Oral 800 MG Oral L ukes Tablet Tablet Memoria l (LUF/LI V/SA) NITROFURANT NITROFURANT Yes 100mg BID [facility] OIN, OIN, [facility] MACROCRYSTA MACROCRYSTA M emoria LS 25 MG / LS 25 MG / l Nitrofurant Nitrofurant ( LUF/LI oin, oin, V/SA) Monohydrate Monohydrate 75 MG [...] Oral Tablet Oral Tablet l (LUF/LI V/SA) Cephalexin Cephalexin Yes 500mg BID [facility] Oral Oral [facility] l (LUF/LI V/SA) Immunizations Ordered Filled Immunization Date Status Comments Sour e Immunization Name Name Td 2017-10-22 Completed [facility] Unknown [facility] Vital Signs Vital Name Observation Time Observation Value Comments Source Systolic blood 2023-02-05 18:44:00 122 [facility]Hg[facility] Diastolic blood 2023-02-05 18:44:00 88 mm[Hg] [facility] Heart rate 2023-02-05 18:44:00 59 /min [facility] Body temperature 2023-02-05 18:44:00 37 [facility] Respiratory rate 2023-02-05 18:44:00 [facility] /[facility] height 2023-02-05 18:44:00 170.2 cm [facility] Body weight 2023-02-05 18:44:00 72.576 kg [facility] BMI 2023-02-05 18:44:00 25.06 kg/m2 [facility] Oxygen saturation in 2023-02-05 18:44:00 100 /min [facility] blood by [facility] Pulse oximetry Branch Pulse Rate 2018-04-20 03:54:00 92 /min [facility] (LUF/YAIMA/SA) Respiratory Rate 2018-04-20 03:54:00 18 /min [facility] (LUF/YAIMA/SA) O2% BldC Oximetry 2018-04-20 03:54:00 93 % [facility] (LUF/YAIMA/SA) BP Systolic 2018-04-20 03:54:00 128 mm[Hg] [facility] (LUF/YAIMA/SA) BP Diastolic 2018-04-20 03:54:00 93 mm[Hg] [facility] (LUF/YAIMA/SA) Body Temperature 2018-04-19 21:02:00 97.8 F [facility] (LUF/YAIMA/SA) Height 2018-04-19 21:02:00 67.5 in [facility] (LUF/YAIMA/SA) Weight Measured 2018-04-19 21:02:00 180.33 lbs [facility] t [facility] (LUF/YAIMA/SA) BMI (Body Mass 2018-04-19 21:02:00 27.9 kg/m2 [facility] (LUF/YAIMA/SA) Pulse Rate 2018-03-31 18:20:00 91 /min [facility] (LUF/YAIMA/SA) Respiratory Rate 2018-03-31 18:20:00 16 /min [facility] (LUF/YAIMA/SA) Body Temperature 2018-03-31 16:48:00 98.6 F [facility] (LUF/YAIMA/SA) O2% BldC Oximetry 2018-03-31 16:48:00 100 % [facility] (F/YAIMA/SA) BP Systolic 2018-03-31 16:48:00 142 mm[Hg] [facility] (LUF/YAIMA/SA) BP Diastolic 2018-03-31 16:48:00 73 mm[Hg] [facility] (LUF/YAIMA/SA) Height 2018-03-31 16:48:00 67 in [facility] (LUF/YAIMA/SA) Weight Measured 2018-03-31 16:48:00 180.55 lbs [facility] Rey [facility] (LUF/YAIMA/SA) BMI (Body Mass 2018-03-31 16:48:00 28.3 kg/m2 [facility] Index) [facility] (LUF/YAIMA/SA) Body Temperature 2018-02-10 15:12:00 99.1 F [facility] (LUF/YAIMA/SA) Pulse Rate 2018-02-10 15:12:00 89 /min [facility] (F/YAIMA/SA) Respiratory Rate 2018-02-10 15:12:00 20 /min [facility] (F/YAIMA/SA) O2% BldC Oximetry 2018-02-10 15:12:00 99 % [facility] (LUF/YAIMA/SA) BP Systolic 2018-02-10 15:12:00 133 mm[Hg] [facility] (LUF/YAIMA/SA) BP Diastolic 2018-02-10 15:12:00 80 mm[Hg] [facility] (LUF/YAIMA/SA) Height 2018-02-10 15:12:00 67 in [facility] (F/YAIMA/SA) Weight Measured 2018-02-10 15:12:00 180.77 lbs [facility] Rey huizar [facility] (LUF/YAIMA/SA) BMI (Body Mass 2018-02-10 15:12:00 28.3 [facility] Index) [facility] (LUF/YAIMA/SA) Respitory Rate 2016-03-27 00:36:00 Memori al [place] Systolic (mm Hg) 2016-03-27 00:36:00 Jerardo rial [place] Diastolic (mm Hg) 2016-03-27 00:36:00 Mem orial [place] Temperature Oral (F) 2016-03-27 00:36:00 98.4 F [facility] [place] Heart Rate 2016-03-27 00:36:00 [facility] [place] Systolic (mm Hg) 2016-03-26 23:00:00 Jerardo rial [place] Diastolic (mm Hg) 2016-03-26 23:00:00 Mem orial [place] Respitory Rate 2016-03-26 23:00:00 Memori al [place] Temperature Oral (F) 2016-03-26 23:00:00 99.0 F [facility] [place] Heart Rate 2016-03-26 23:00:00 [facility] [place] Temperature Oral (F) 2016-03-26 21:23:00 100.1 F [facility] [place] Systolic (mm Hg) 2016-03-26 21:23:00 Jerardo rial [place] Diastolic (mm Hg) 2016-03-26 21:23:00 Mem orial [place] Height 2016-03-26 21:23:00 171.45 cm [facility] [place] Weight 2016-03-26 21:23:00 [facility] [place] Heart Rate 2016-03-26 21:23:00 [facility] [place] Respitory Rate 2016-03-26 21:23:00 Memori al [place] BMI Calculated 2016-03-26 21:23:00 Memori al [place] Heart Rate 2014-01-23 05:06:00 [facility] [place] Systolic (mm Hg) 2014-01-23 05:06:00 Jerardo rial [place] Diastolic (mm Hg) 2014-01-23 05:06:00 Mem orial [place] Respitory Rate 2014-01-23 05:06:00 Memori al [place] Temperature Oral (F) 2014-01-23 05:06:00 99.7 F [facility] [place] Temperature Oral (F) 2014-01-23 00:05:00 99.2 F [facility] [place] Weight 2014-01-23 00:05:00 [facility] [place] Height 2014-01-23 00:05:00 170.18 cm [facility] [place] BMI Calculated 2014-01-23 00:05:00 Memori al [place] Diastolic (mm Hg) 2014-01-23 00:05:00 Mem orial [place] Heart Rate 2014-01-23 00:05:00 [facility] [place] Systolic (mm Hg) 2014-01-23 00:05:00 Jerardo rial [place] Respitory Rate 2014-01-23 00:05:00 Memori al [place] Procedures Procedure Date / Time Performed Performing Clinician Sourc e RAPID STREP SCREEN FOR 2023-02-05 19:58:00 Saleem Edwards [facility] GROUP A Medical Branch RAPID INFLUENZA A/B 2023-02-05 19:58:00 Saleem Edwards [facility] Medical Branch COVID-19 (ID NOW RAPID 2023-02-05 19:58:00 Saleem Edwards [facility] TESTING) Medical Branch ASSIGNMENT OF BENEFITS 2023-02-05 19:32:27 Doctor Unassigned, No [facility] Medical Branch NOTICE OF PRIVACY 2023-02-05 18:43:01 Doctor Unassigned, No [facility] PRACTICES Name Medical Branch CONSENT/REFUSAL FOR 2023-02-05 18:40:55 Doctor Unassigned, No [facility] DIAGNOSIS AND Name Medical Branch TREATMENT ASSIGNMENT OF BENEFITS 2023-02-05 18:40:40 Doctor Unassigned, No [facility] Plan of Care Planned Activity Planned Date Details Comments Source Future Scheduled 2023-02-02 COVID-19 VACCINE (#1) [facility] Test 16:40:08 [code = COVID-19 VACCINE (#1)] Future Scheduled 2023-02-02 Pneumococcal Vaccine: [facility] Test 16:40:08 Pediatrics (0 to 5 Years) and At-Risk Patients (6 to 64 Years) (1 - PCV) [code = Pneumococcal Vaccine: Pediatrics (0 to 5 Years) and At-Risk Patients (6 to 64 Years) (1 - PCV)] Future Scheduled 2023-02-02 Hepatitis C screening [facility] Test 16:40:08 (procedure) [code = 325518539] Future Scheduled 2023-02-02 Screening for [facility] Test 16:40:08 malignant neoplasm of cervix (procedure) [code = 416071659] Future Scheduled 2023-02-02 INFLUENZA VACCINE (#1) [facility] Test 16:40:08 [code = INFLUENZA VACCINE (#1)] Future Scheduled 2022-12-12 COVID-19 VACCINE (#1) [facility] Test 06:12:36 [code = COVID-19 VACCINE (#1)] Future Scheduled 2022-12-12 Pneumococcal Vaccine: [facility] Test 06:12:36 Pediatrics (0 to 5 Years) and At-Risk Patients (6 to 64 Years) (1 - PCV) [code = Pneumococcal Vaccine: Pediatrics (0 to 5 Years) and At-Risk Patients (6 to 64 Years) (1 - PCV)] Future Scheduled 2022-12-12 Hepatitis C screening [facility] Test 06:12:36 (procedure) [code = 293204104] Future Scheduled 2022-12-12 Screening for [facility] Test 06:12:36 malignant neoplasm of cervix (procedure) [code = 349206972] Future Scheduled 2022-12-12 INFLUENZA VACCINE (#1) [facility] Test 06:12:36 [code = INFLUENZA VACCINE (#1)] Encounters Start End Encounter Admission Attending Care Care Encounter Source Date/Time Date/Time Type Type Clinicians Facility Department ID 2023-02-05 2023-02-05 Emergency X ANA M EDWARDS ERT [id number] [facility] 13:47:00 18:09:00 SALEEM lee [facility] 2023-02-05 2023-02-05 Emergency Courtney [facility] [id number] Univers 13:47:00 18:09:00 Saleem Le [facility] [id number] i [facility] [id number] [facility] [id number] [address] 2021-01-07 2021-01-07 Outpatient PRIV PRIV [id number] [facility] 00:00:00 00:00:00 [id number] Medica l 2021-01-07 2021-01-07 Outpatient PRIV PRIV [id number] [facility] 00:00:00 00:00:00 [id number] Medica l 2021-01-07 2021-01-07 Outpatient PRIV PRIV [id number] [id number] [facility] 00:00:00 00:00:00 [id number] Medica l 2020-08-01 2020-08-01 [facility] [id number] [place] 00:00:00 00:00:00 LANDRY [place] [facility] 2018-04-19 2018-04-20 UTI SITE E NANDINI, [facility] [id number] [facility] [address] 20:20:00 04:02:00 NOT SEA Us ukes SPECIFIED N, [address], (LUF[place] [address] 2018-03-31 2018-03-31 UTI SITE E LISA, [facility] [id number] 15:50:00 18:24:00 NOT RHONDA Us ukes SPECIFIED N, [address], (LUF[place] [address] 2018-02-10 2018-02-10 Inpatient SAHIL, [facility] [id number] 14:58:00 16:03:00 CORETTA Us ukes N, [address], (LUF[place] [address] 2017-06-28 2017-07-06 [facility]patient [facility] [id number] [place] 00:00:00 00:00:00 [facility] 2016-03-26 2016-03-27 Emergency [facility] [id number] Memoria 21:03:00 00:39:00 [place] 05 [facility] 2016-03-26 2016-03-26 Outpatient Tyesha [facility] [id number] 15:03:00 18:39:00 Jose L Montes 2014-01-23 2014-01-23 [facility] [id number] Memoria 00:00:00 05:32:00 Emergency r Harrison Avila l [facility] 2014-01-22 2014-01-23 Outpatient Ancelmo Beltran [id number] 19:00:00 00:32:00 Min Randall [id number] Results Test Description Test Time Test Comments Results Result Comments Source SARS-CoV-2 (COVID-19) RNA [Presence] in Respiratory sp ecimen by 2020-08-01 20:56:56 BRIEN with probe detection Test Item Value Reference Range Interpretation Comme nts SARS-CoV-2 (COVID-19) RNA [Presence] in Respiratory Not detected No t-Detected specimen by BRIEN with probe detection (test code = 49289-9) Whether patient is employed in a healthcare setting (test code = 26213-7) Whether the patient has symptoms related to condition of interest (test code = 06906-3) Patient was hospitalized because of this condition (test code = 98995-5) Whether the patient was admitted to intensive care unit (ICU) for condition of interest (test code = 66428-7) Whether patient resides in a congregate care setting (test code = 11552-4) [facility], [id number] 10:15:00Specimen: Urine SpecimensCollected: 04/20/2018 03:34 Status: Final [...] Levofloxacin 1 S Meropenem <=0.25 S Nitrofurantoin 64I Tobramycin <=1 S Trimeth/Sulfa >=320 R ESBL Positive +[facility], TV,PCR, IN HOUSE 2018-04-21 17:05:00 Test Item Value Reference Range Interpretation Comments FT (test code = CHTR) Not detected (qualifier Not Detected N value) FT (test code = Not detected (qualifier Not Detected N NGONO) value) FT (test code = TRVG) Not detected (qualifier Not Detected N value) [facility] WITH [id number] 02:45:00 Test Item Value Reference Range Interpretation Comments Color (test code = UCOLR) LT. YELLOW Clarity (test code = UCLAR) CLEAR Glucose (test code = UGLUC) NEGATIVE NEGATIVE N Bilirubin (test code = UBILI) NEGATIVE NEGATIVE N Ketones (test code = UKET) NEGATIVE NEGATIVE N Specific Rubicon (test code = 1.015 1.005-1.030 A USPGR) [...] code = UBACT) 3+ None Seen,Trace A [facility] CountyWE [id number] 02:43:00Specimen: VaginalCollected: 04/20/2018 02:28 Status: Final Last Updated: 04/20/2018 02:43 [place] (Final) (Final) WBC- MANY OBSERVED No Clue Cells Seen No Yeast or Trichomonas seenMem[facility] CountyPREGNANCY TEST, Urine [id number] 01:57:00 Test Item Value Reference Range Interpretation Comments (Urine) (test code = Negative PREGU) If a specimen is collected by a nurse, then you MUST fill out the Collected and Collected By quintana [facility] URINALYSIS WITH [id number] 18:07:00 Test Item Value Reference Range Interpretation Comments Color (test code = UCOLR) LT. YELLOW Clarity (test code = UCLAR) CLEAR Glucose (test code = UGLUC) NEGATIVE NEGATIVE N Bilirubin (test code = UBILI) NEGATIVE NEGATIVE N Ketones (test code = UKET) NEGATIVE NEGATIVE N Specific Rubicon (test code = 1.020 1.005-1.030 A USPGR) [...] code = UBACT) Trace None Seen,Trace N [facility], Urine [id number] 17:59:00 Test Item Value Reference Range Interpretation Comments (Urine) (test code = Negative PREGU) If a specimen is collected by a nurse, then you MUST fill out the Collected and Collected By quintana [facility] CARDIAC [id number] 22:11:00 Test Item Value Reference Range Interpretation Comments BNP (test code = BNP) 48 [facility] [id number] 22:11:00 Test Item Value Reference Range Interpretation Comments Troponin-I (test code = Troponin-I) no gt <=0.40 [id number] 22:11:00 Test Item Value Reference Range Interpretation Comments CO2 (test code = CO2) 26 24-32 [id number] 22:11:00 Test Item Value Reference Range Interpretation Comments Calcium Lvl (test code = Calcium Lvl) 9.0 8.5-10.5 [facility]aOkwpkqxOOSORNDPRPIB0978-08-02 22:11:00 Test Item Value Reference Range Interpretation Comments Glucose Lvl (test code = Glucose Lvl) 93 70-99 [id number] 22:11:00 Test Item Value Reference Range Interpretation Comments BUN (test code = BUN) 6 7-22 [id number] 22:11:00 Test Item Value Reference Range Interpretation Comments Creatinine Lvl (test code = Creatinine 0.95 0.50-1.40 Lvl) [id number] 22:11:00 Test Item Value Reference Range Interpretation Comments Sodium Lvl (test code = Sodium Lvl) 141 135-145 [id number] 22:11:00 Test Item Value Reference Range Interpretation Comments Potassium Lvl (test code = Potassium 4.0 3.5-5.1 Lvl) [id number] 22:11:00 Test Item Value Reference Range Interpretation Comments Chloride Lvl (test code = Chloride Lvl) 108 95-109 [facility]aDcrwuwsECVCPIIIRGWX4486-05-26 22:11:00 Test Item Value Reference Range Interpretation Comments eGFR (test code = eGFR) 82 [id number] 22:11:00 Test Item Value Reference Range Interpretation Comments AGAP (test code = AGAP) 11.0 10.0-20.0 [place] [id number] 22:11:00 Test Item Value Reference Range Interpretation Comments S Preg (test code = S Negative *NA*(03/26/16 Preg) 4:11 PM) [facility] [id number] 22:11:00 Test Item Value Reference Range Interpretation Comments Hgb (test code = Hgb) 14.3 12.0-16.0 [facility] C[id number] 22:11:00 Test Item Value Reference Range Interpretation Comments Hct (test code = Hct) 42.3 36.0-48.0 [facility] Cent[id number] 22:11:00 Test Item Value Reference Range Interpretation Comments RBC (test code = RBC) 4.57 4.20-5.40 [facility] Cent[id number] 22:11:00 Test Item Value Reference Range Interpretation Comments WBC (test code = WBC) 7.8 3.7-10.4 [facility] Center[id number] 22:11:00 Test Item Value Reference Range Interpretation Comments MCH (test code = MCH) 31.2 pg 27.0-31.0 [facility] CenterBhrankpLDZQLCLUNT3337-14-53 22:11:00 Test Item Value Reference Range Interpretation Comments MCHC (test code = MCHC) 33.8 32.0-36.0 [facility] Cent[id number] 22:11:00 Test Item Value Reference Range Interpretation Comments MCV (test code = MCV) 92.5 80.0-98.0 [id number] 22:11:00 Test Item Value Reference Range Interpretation Comments MPV (test code = MPV) 7.0 7.4-10.4 [facility] CenterElachvtTABMXVZEIK8574-96-77 22:11:00 Test Item Value Reference Range Interpretation Comments RDW (test code = RDW) 13.3 11.5-14.5 [facility] [id number] 22:11:00 Test Item Value Reference Range Interpretation Comments Platelet (test code = Platelet) 274 133-450 [facility] CenterUgmotumTYGKZFPCXL8930-00-20 22:11:00 Test Item Value Reference Range Interpretation Comments Basophils (test code = Basophils) 0.5 <=1.0 [facility] CenterPumhpkaKXNDFFWAVC9085-13-24 22:11:00 Test Item Value Reference Range Interpretation Comments Segs-Bands # (test code = Segs-Bands #) 5.6 1.5-8.1 [facility] CenterJxyyghqGADTHDFYOX0102-43-22 22:11:00 Test Item Value Reference Range Interpretation Comments Eosinophils # (test code = Eosinophils 0.3 <=0.5 #) [facility] Cent[id number] 22:11:00 Test Item Value Reference Range Interpretation Comments Monocytes # (test code = Monocytes #) 0.7 <=0.8 [facility] CenterIdprulqAHFRIPYWCZ0872-32-82 22:11:00 Test Item Value Reference Range Interpretation Comments Lymphocytes # (test code = Lymphocytes 1.1 1.0-5.5 #) [facility] CenterWhdnncyTDOEABQVAP1467-08-42 22:11:00 Test Item Value Reference Range Interpretation Comments Eosinophils (test code = Eosinophils) 3.9 <=4.0 [facility] CenterCpdwmjvFZNDEIMICV7160-74-42 22:11:00 Test Item Value Reference Range Interpretation Comments Segs (test code = Segs) 71.7 45.0-75.0 [facility] Cent[id number] 22:11:00 Test Item Value Reference Range Interpretation Comments Lymphocytes (test code = Lymphocytes) 14.4 20.0-40.0 [facility] CenterVsrshelRUUBMMHPPX8037-50-29 22:11:00 Test Item Value Reference Range Interpretation Comments Monocytes (test code = Monocytes) 9.5 2.0-12.0 [facility] [id number] 22:11:00 Test Item Value Reference Range Interpretation Comments Influ A (test code = Negative (03/26/16 4:11 Influ A) PM) [facility] [id number] 22:11:00 Test Item Value Reference Range Interpretation Comments Influ B (test code = Negative (03/26/16 4:11 Influ B) PM) [facility] ZtszbllNSJGWETGTSGYM7053-01-34 03:00:00 Test Item Value Reference Range Interpretation Comments hCG Tot (test code = hCG Tot) 1012 [facility] [id number] 02:25:18 Test Item Value Reference Range Interpretation Comments UA Trans Epi (test code = UA Trans Epi) FEW [facility] [id number] 02:25:18 Test Item Value Reference Range Interpretation Comments UA Bacteria (test code = UA Few /HPF Bacteria) [facility] [id number] 02:25:18 Test Item Value Reference Range Interpretation Comments UA RBC (test code = UA RBC) 2 <=2 [facility] [id number] 02:25:18 Test Item Value Reference Range Interpretation Comments UA Mucus (test code = UA Mucus) Many /LPF [facility] [id number] 02:25:18 Test Item Value Reference Range Interpretation Comments UA Sq Epi (test code = UA Sq Epi) Many /LPF [facility] [id number] 02:25:18 Test Item Value Reference Range Interpretation Comments UA WBC (test code = UA WBC) 8 <=5 [facility] [id number] 02:25:18 Test Item Value Reference Range Interpretation Comments UA Leuk Est (test code Trace *ABN*(01/22/14 = UA Leuk Est) 9:25 PM) [facility] [id number] 02:25:18 Test Item Value Reference Range Interpretation Comments UA Nitrite (test code Negative (01/22/14 9:25 = UA Nitrite) PM) [facility] [id number] 02:25:18 Test Item Value Reference Range Interpretation Comments UA Blood (test code = Negative (01/22/14 9:25 UA Blood) PM) [facility] [id number] 02:25:18 Test Item Value Reference Range Interpretation Comments UA Urobilinogen (test code = UA 2.0 0.1-1.0 Urobilinogen) [facility] [id number] 02:25:18 Test Item Value Reference Range Interpretation Comments UA Ketones (test code = UA Ketones) 80 mg/dL [facility] [id number] 02:25:18 Test Item Value Reference Range Interpretation Comments UA Bili (test code = Negative *NA*(01/22/14 UA Bili) 9:25 PM) [facility] [id number] 02:25:18 Test Item Value Reference Range Interpretation Comments UA Glucose (test code = UA Negative mg/dL Glucose) [facility] [id number] 02:25:18 Test Item Value Reference Range Interpretation Comments UA Protein (test code = UA Protein) 100 mg/dL [facility] [id number] 02:25:18 Test Item Value Reference Range Interpretation Comments UA pH (test code = UA pH) 6.0 5.0-8.0 [facility] [id number] 02:25:18 Test Item Value Reference Range Interpretation Comments UA Spec Grav (test code = UA Spec Grav) 1.032 [facility] [id number] 02:25:18 Test Item Value Reference Range Interpretation Comments UA Turbidity (test code Slight *ABN*(01/22/14 = UA Turbidity) 9:25 PM) [facility] [id number] 02:25:18 Test Item Value Reference Range Interpretation Comments UA Color (test code = Yellow *NA*(01/22/14 UA Color) 9:25 PM) [facility] [id number] 02:25:18 Test Item Value Reference Range Interpretation Comments U Preg (test code = U Positive *ABN*(01/22/14 Preg) 9:25 PM) [facility]cosPtjyfyzGCDPREMQUY0005-66-45 01:15:42 Test Item Value Reference Range Interpretation Comments CDC HIV 4th GEN (test Negative (01/22/14 8:15 code = CDC HIV 4th PM) GEN) [facility]CHE[facility] [id number] 01:15:00 Test Item Value Reference Range Interpretation Comments AGAP (test code = AGAP) 16.1 10.0-20.0 [facility] [id number] 01:15:00 Test Item Value Reference Range Interpretation Comments A/G Ratio (test code = A/G Ratio) 1.4 0.7-1.6 [facility] [id number] 01:15:00 Test Item Value Reference Range Interpretation Comments Globulin (test code = Globulin) 3.2 2.0-4.0 [facility] CenterTnzkssoRXCBIOPVTP6633-79-77 01:15:00 Test Item Value Reference Range Interpretation Comments MCHC (test code = MCHC) 33.8 32.0-36.0 [facility] CenterJktbrvaRLLEWUVLEB7099-83-31 01:15:00 Test Item Value Reference Range Interpretation Comments MCH (test code = MCH) 30.5 pg 27.0-31.0 [facility] CenterEvuzghmKFLYWSFTCX1071-66-10 01:15:00 Test Item Value Reference Range Interpretation Comments RDW (test code = RDW) 14.2 11.5-14.5 [facility] C[id number] 01:15:00 Test Item Value Reference Range Interpretation Comments MCV (test code = MCV) 90.5 80.0-98.0 [facility] CenterQygriliTGORHRLVMB6916-10-41 01:15:00 Test Item Value Reference Range Interpretation Comments Hgb (test code = Hgb) 14.7 12.0-16.0 [facility] CenterEvyurfkQUTBSKDUPH4279-42-61 01:15:00 Test Item Value Reference Range Interpretation Comments Hct (test code = Hct) 43.5 36.0-48.0 [facility] CenterHhvebdfCHUWFJABQN9602-03-39 01:15:00 Test Item Value Reference Range Interpretation Comments WBC (test code = WBC) 12.2 3.7-10.4 [facility] CenterCoirgzlGJDAVJCRSF4402-20-45 01:15:00 Test Item Value Reference Range Interpretation Comments RBC (test code = RBC) 4.81 4.20-5.40 [facility] CenterAnnrirrQJVLHNIATI8243-86-36 01:15:00 Test Item Value Reference Range Interpretation Comments Platelet (test code = Platelet) 378 133-450 [facility] CenterDjygtgyHERUZJNHZV7384-54-73 01:15:00 Test Item Value Reference Range Interpretation Comments MPV (test code = MPV) 7.8 7.4-10.4 [facility] CenterMpxoxmdVCHDVUNXFV6220-70-11 01:15:00 Test Item Value Reference Range Interpretation Comments Basophils # (test code = Basophils #) 0.1 <=0.2 [facility] CenterKpgvkvuUPMZVOILJU8343-44-62 01:15:00 Test Item Value Reference Range Interpretation Comments Lymphocytes (test code = Lymphocytes) 18.1 20.0-40.0 [facility] CenterPgznhpnVCFIKQCEOL8913-29-75 01:15:00 Test Item Value Reference Range Interpretation Comments Segs (test code = Segs) 71.9 45.0-75.0 [facility] CenterOwxhpxsGJTCWUPGST1538-49-57 01:15:00 Test Item Value Reference Range Interpretation Comments Eosinophils # (test code = Eosinophils 0.1 <=0.5 #) [facility] CenterIhstneyBXOUXZVEDF9895-22-33 01:15:00 Test Item Value Reference Range Interpretation Comments Lymphocytes # (test code = Lymphocytes 2.2 1.0-5.5 #) [facility] CenterTxlundeXFGLJXVHGT5714-14-63 01:15:00 Test Item Value Reference Range Interpretation Comments Monocytes # (test code = Monocytes #) 1.1 <=0.8 [facility] CenterBwpdlskWAFBYTFOVO3301-28-99 01:15:00 Test Item Value Reference Range Interpretation Comments Eosinophils (test code = Eosinophils) 0.6 <=4.0 [facility] CenterYlmlcyfXRZICBBEGY5314-60-72 01:15:00 Test Item Value Reference Range Interpretation Comments Monocytes (test code = Monocytes) 9.0 2.0-12.0 [facility] CenterJbrcdyzGOJVNJSLCY6578-12-70 01:15:00 Test Item Value Reference Range Interpretation Comments Basophils (test code = Basophils) 0.4 <=1.0 [facility] CenterTtlmrxsYMXTDUWXZV5880-43-06 01:15:00 Test Item Value Reference Range Interpretation Comments Segs-Bands # (test code = Segs-Bands #) 8.8 1.5-8.1 [facility] [place]2014-10-16 01:15:00 Test Item Value Reference Range Interpretation Comments Lipase Lvl (test code = Lipase Lvl) 120 73-393 [facility]2014-10-16 01:15:00 Test Item Value Reference Range Interpretation Comments BUN (test code = BUN) 12 7-22 [facility]2014-10-16 01:15:00 Test Item Value Reference Range Interpretation Comments CO2 (test code = CO2) 23 24-32 [facility]2014-10-16 01:15:00 Test Item Value Reference Range Interpretation Comments Albumin Lvl (test code = Albumin Lvl) 4.4 3.5-5.0 [facility]2014-10-16 01:15:00 Test Item Value Reference Range Interpretation Comments Total Protein (test code = Total 7.6 6.4-8.4 Protein) [facility]2014-10-16 01:15:00 Test Item Value Reference Range Interpretation Comments Bili Total (test code = Bili Total) 0.3 0.2-1.3 [facility]2014-10-16 01:15:00 Test Item Value Reference Range Interpretation Comments Glucose Lvl (test code = Glucose Lvl) 93 70-99 [facility]2014-10-16 01:15:00 Test Item Value Reference Range Interpretation Comments eGFR (test code = eGFR) 121 [facility]2014-10-16 01:15:00 Test Item Value Reference Range Interpretation Comments Creatinine Lvl (test code = Creatinine 0.7 0.5-1.4 Lvl) [facility]2014-10-16 01:15:00 Test Item Value Reference Range Interpretation Comments Alk Phos (test code = Alk Phos) 82 39-136 [facility]2014-10-16 01:15:00 Test Item Value Reference Range Interpretation Comments AST (test code = AST) 46 <=37 [facility]2014-10-16 01:15:00 Test Item Value Reference Range Interpretation Comments ALT (test code = ALT) 126 <=65 [facility]2014-10-16 01:15:00 Test Item Value Reference Range Interpretation Comments Chloride Lvl (test code = Chloride Lvl) 102 95-109 [facility]2014-10-16 01:15:00 Test Item Value Reference Range Interpretation Comments Potassium Lvl (test code = Potassium 4.1 3.5-5.1 Lvl) [facility]2014-10-16 01:15:00 Test Item Value Reference Range Interpretation Comments Sodium Lvl (test code = Sodium Lvl) 137 135-145 [facility] [id number] 01:15:00 Test Item Value Reference Range Interpretation Comments Calcium Lvl (test code = Calcium Lvl) 9.3 8.5-10.5 [facility] [id number] 01:15:00 Test Item Value Reference Range Interpretation Comments B/C Ratio (test code = B/C Ratio) 17 6-25 [facility]
[2023-02-06] MEDS ORDERED: KETOROLAC 30 MG/ML INJ ONE (11:39)
[2023-02-06] MEDS ORDERED: NA CHLORIDE 0.9% 1,000 ML ONE (11:39)
[2023-02-06 11:54] LABS: Absolute Lymphocytes (CBC) 0.7 K/uL (0.7-4.9); Hematocrit 43.1 % (36.0-45.0); Lymphocytes % 25.3 % (15.3-44.8); MCV 90.8 fL (80-100); MPV 7.4 fL (7.6-11.3); Platelets 208 thou/uL (152-406); RBC Red Blood Cell Count 4.75 M/uL (3.86-4.86)
--- NOTE | 2023-02-06 11:58 | RAD REPORT ---
EXAM DESCRIPTION: Cady Single View02/06/2023 11:47 am CLINICAL HISTORY: Chest pain COMPARISON: none FINDINGS: Left base is mildly hazy. Right lung appears clear Heart is normal size IMPRESSION: Left lung base is mildly hazy. This probably is confluence of ribs and vessels. As a mil d infiltrate can have similar appearance PA and lateral chest series recommended
[2023-02-06 12:00] LABS: SARS-CoV-2 Antigen Rapid Res Negative (Negative)
[2023-02-06 12:12] LABS: ALT/SGPT 27 U/L (13-56); AST/SGOT 20 U/L (15-37); Albumin 3.8 g/dL (3.4-5.0); Alkaline Phosphatase 50 U/L (45-117); BUN Blood Urea Nitrogen 7 mg/dL (7-18); Bicarbonate 22 mEq/L (21-32); Bilirubin Total 0.3 mg/dL (0.2-1.0); Creatine Phosphokinase 191 U/L (26-192); Glomerular Filtration Rate 93 ml/min (=/>90); Glucose Level 91 mg/dL (74-106); Protein, Total 7.9 g/dL (6.4-8.2); Sodium Level 137 mEq/L (136-145); Troponin High Sensitivity 3.9 pg/mL (<58.9)
[2023-02-06 12:21] LABS: Bilirubin Direct < 0.1 mg/dL (0-0.2); Bilirubin Indirect, Calculated ND mg/dL (0.2-0.8)
--- NOTE | 2023-02-06 12:27 | RAD REPORT ---
EXAM DESCRIPTION: Cady Pa And Lat (2 Views)02/06/2023 12:16 pm CLINICAL HISTORY: Chest pain COMPARISON: February 06, 2023 FINDINGS: 5 millimeter nodular opacity overlies each lung base Upper lobes are clear Heart is normal size IMPRESSION: A 5 millimeter nodular opacity overlies each lung base probably nipple shadows. Pulmonar y nodules are another consideration. Most likely these are benign. It is recommended that the patient have a followup chest film in 6 months for re-evaluation
--- NOTE | 2023-02-06 12:31 | EDPHYS ---
Physician Documentation [facility] Name: Justina Welch Age: 33 yrs Sex: Female : 1990 Arrival Date: 02/06/2023 Time: 11:06 Bed 7 Private MD: ED Physician Panda Zhao HPI: 02/06 11:22 This 33 yrs old Female presents to ER via Wheelchair with complaints of Flu Symptoms. sb4 11:22 patient states she has been feeling very poorly for 3 days now- states her entire body sb4 hurts, has been running fever, nasal congestion, headache. she was seen at [place] yesterday and tested negative for covid but she did not get her other results because she left. she has been taking several OTC medications without resolution or any relief of symptoms. denies any n/v/d. Historical: - Allergies: 11:51 No Known Allergies; jl7 - Home Meds: 11:51 None [Active]; jl7 - PMHx: 11:51 None; jl7 - PSHx: 11:51 None; jl7 - Immunization history:: Adult Immunizations unknown. - Social history:: Smoking status: unknown. ROS: 11:22 Skin: Negative for injury, rash, and discoloration, sb4 11:22 Constitutional: Positive for body aches, fatigue, fever, malaise, 11:22 ENT: Positive for sinus congestion, 11:22 Cardiovascular: Positive for chest pain, 11:22 Respiratory: Positive for cough, shortness of breath, 11:22 Neuro: Positive for headache, 11:22 All other systems are negative, Exam: 12:33 Head/Face: Normocephalic, atraumatic. Eyes: Extra-ocular motions intact. Periorbital sb4 areas with no swelling, redness, or edema. Cardiovascular: Regular rate and rhythm with a normal S1 and S2. Respiratory: Lungs have equal breath sounds bilaterally, clear to auscultation and percussion. No rales, rhonchi or wheezes noted. No increased work of breathing, no retractions or nasal flaring. Abdomen/GI: Soft, non-tender, no distension. Skin: Warm, dry with normal turgor. Normal color with no rashes, no lesions, and no evidence of cellulitis. MS/ Extremity: Pulses equal, no cyanosis. Neurovascular intact. Full, normal range of motion. Neuro: Awake and alert, GCS 15, oriented to person, place, time, and situation. Motor strength 5/5 in all extremities. Sensory grossly intact. 12:33 Constitutional: The patient appears alert, awake, obviously ill, Vital Signs: 11:10 BP 118 / 68; Pulse 93; Resp 18; Temp 98.7; Pulse Ox 100% ; Weight 71.67 kg; os 12:57 BP 106 / 60; Pulse 61; Resp 15; Pulse Ox 100% ; jl7 MDM: 11:14 Patient medically screened. sb4 12:30 Differential diagnosis: covid, flu, rhabdo, pneumonia, bronchitis, URI. Data reviewed: sb4 vital signs, nurses notes, lab test result(s), radiologic studies, and as a result, I will discharge patient. Counseling: I had a detailed discussion with the patient and/or guardian regarding the historical points, exam findings, and any diagnostic results supporting the discharge/admit diagnosis, lab results, radiology results, to return to the emergency department if symptoms worsen or persist or if there are any questions or concerns that arise at home. 02/06 11:21 Order name: Basic Metabolic Panel; Complete Time: 12:22 sb4 02/06 11:21 Order name: CBC with Diff; Complete Time: 11:56 sb4 02/06 11:21 Order name: D-Dimer; Complete Time: 11:58 sb4 02/06 11:21 Order name: LFT's; Complete Time: 12:22 sb4 02/06 11:21 Order name: Magnesium; Complete Time: 12:22 sb4 02/06 11:21 Order name: Troponin HS; Complete Time: 12:22 sb4 02/06 11:21 Order name: SARS RAPID; Complete Time: 12:00 sb4 02/06 11:21 Order name: Flu; Complete Time: 12:06 sb4 02/06 11:21 Order name: CPK; Complete Time: 12:22 sb4 02/06 11:21 Order name: XRAY Chest (1 view); Complete Time: 11:58 sb4 02/06 11:59 Order name: Chest Pa And Lat (2 Views) XRAY; Complete Time: 12:27 sb4 02/06 11:21 Order name: EKG; Complete Time: 11:21 sb4 02/06 11:21 Order name: Cardiac monitoring; Complete Time: 11:43 sb4 02/06 11:21 Order name: EKG - Nurse/Tech; Complete Time: 11:27 sb4 02/06 11:21 Order name: IV Saline Lock; Complete Time: 11:43 sb4 02/06 11:21 Order name: Labs collected and sent; Complete Time: 11:43 sb4 02/06 11:21 Order name: O2 Per Protocol; Complete Time: 11:43 sb4 02/06 11:21 Order name: O2 Sat Monitoring; Complete Time: :43 sb4 EC: Rate is 87 beats/min. Rhythm is irregular, Sinus arrythmia. IN interval is normal at sb4 132 msec. QRS interval is normal at 94 msec. QT interval is normal at 425 msec. No Q waves. T waves are Normal. No ST changes noted. Clinical impression: Normal ECG. Interpreted by me. Reviewed by me. Administered Medications: 11:43 Drug: NS 0.9% IV 1000 ml IV at 1 bolus Per protocol; 1000 mL bolus Route: IV; Rate: 1 jl7 bolus; Site: left antecubital; 12:41 Follow up: IV Status: Completed infusion; IV Intake: 1000ml jl7 11:43 Drug: Ketorolac IVP 15 mg IVP once Route: IVP; Site: left antecubital; jl7 12:42 Follow up: Response: No adverse reaction jl7 12:41 Drug: Oseltamivir PO 75 mg PO once Route: PO; jl7 12:59 Follow up: Response: Medication administered at discharge. jl7 12:41 Drug: Decadron - Dexamethasone IVP 10 mg IVP once Route: IVP; Site: left antecubital; jl7 12:59 Follow up: Response: Medication administered at discharge. jl7 12:41 Drug: Tussionex Pennkinetic ER PO Suspension 5 ml PO once Route: PO; jl7 12:58 Follow up: Response: Medication administered at discharge. jl7 Disposition Summary: 02/06/23 12:31 Discharge Ordered Notes: Location: Home sb4 Problem: new sb4 Symptoms: are unchanged sb4 Condition: Stable sb4 Diagnosis - Influenza B sb4 Followup: sb4 - With: Emergency Department - When: As needed - Reason: Trouble breathing, Worsening of condition Discharge Instructions: - Discharge Summary Sheet sb4 - Influenza, Adult, [id number] sb4 Forms: - Work release form jl7 - Medication Reconciliation Form sb4 - Thank You Letter sb4 - Antibiotic Education sb4 - Prescription Opioid Use sb4 - Patient Portal Instructions sb4 - Leadership Thank You Letter sb4 Prescriptions: - Tessalon Perles 100 mg Oral Capsule - take 1 capsule ORAL route every 8 hours As needed; 15 capsule; Refills: 0, sb4 Product Selection Permitted - Medrol (Shaw) 4 mg Oral Tablets, Dose Pack - take 1 tablet ORAL route as directed - follow package instructions; 1 packet; sb4 Refills: 0, Product Selection Permitted - Tamiflu 75 mg Oral capsule - take 1 tablet ORAL route every 12 hours for 5 days; 10 tablet; Refills: 0, sb4 Product Selection Permitted Addendum: 02/08/2023 10:24 I was immediately available for consultation during this patient's visit. I did not e c2 personally see the patient or guide the patient's care.. Signatures: Dispatcher [employer] Gregg Fallon RN RN [email or web address] Kimmy Whitlock PAEstrella PA-Kylah sb4 Panda Zhao MD MD ec2 Corrections: (The following items were deleted from the chart) 02/06 11:45 11:44 Allergies: No Known Allergies; jl7 jl7 11:45 11:44 PSHx: tubal ligation; jl7 jl7
--- NOTE | 2023-02-06 12:31 | ER ---
Nurse's Notes [facility] Name: Justina Welch Age: 33 yrs Sex: Female : 1990 Arrival Date: 02/06/2023 Time: 11:06 Bed 7 Private MD: Diagnosis: Influenza B Presentation: 02/06 11:10 Chief complaint: Patient states: Patient c/o fever, weakness, and generalized body pain os for the past 4 days. Patient states, " I can't drink any water. I can barely even walk. I was in at the [facility] and they tested me for covid, but it was negative". Coronavirus screen: Vaccine status: Patient reports being unvaccinated. Client denies travel out of the [place] in the last 14 days. Client presents with at least one sign or symptom that may indicate coronavirus-19. Standard/surgical mask placed on the client. Provider contacted for isolation considerations. The client reports previous COVID testing was negative. Date of collection: February 05, 2023. Ebola Screen: No symptoms or risks identified at this time. Initial Sepsis Screen: Does the patient meet any 2 criteria? No. Patient's initial sepsis screen is negative. Does the patient have a suspected source of infection? No. Patient's initial sepsis screen is negative. Risk Assessment: Do you want to hurt yourself or someone else? Patient reports no desire to harm self or others. Onset of symptoms was February 03, 2023. 11:10 Method Of Arrival: Wheelchair os 11:10 Acuity: BROOKE 4 os 11:28 Acuity: BROOKE 3 mb9 Historical: - Allergies: 11:51 No Known Allergies; jl7 - Home Meds: 11:51 None [Active]; jl7 - PMHx: 11:51 None; jl7 - PSHx: 11:51 None; jl7 - Immunization history:: Adult Immunizations unknown. - Social history:: Smoking status: unknown. Screenin:15 [facility] ED Fall Risk Assessment (Adult) Score/Fall Risk Level 0 - 2 = Low Risk jl7 Oriented to surroundings, Maintained a safe environment. Abuse screen: Denies threats or abuse. Denies injuries from another. Nutritional screening: No deficits noted. Tuberculosis screening: No symptoms or risk factors identified. Assessment: 12:25 Reassessment: MALLIKA Moreno at bedside discussing results and POC. jl7 Vital Signs: 11:10 BP 118 / 68; Pulse 93; Resp 18; Temp 98.7; Pulse Ox 100% ; Weight 71.67 kg; os 12:57 BP 106 / 60; Pulse 61; Resp 15; Pulse Ox 100% ; jl7 ED Course: 11:07 Patient arrived in ED. rg4 11:07 Kimmy Whitlock PA-C [facility]. sb4 11:07 Panda Zhao MD is Attending Physician. sb4 11:14 Triage completed. os 11:21 Gregg Garay, SANDOVAL is Primary Nurse. jl7 11:28 Arm band placed on. mb9 11:43 Initial lab(s) drawn, by me, sent to lab. Inserted saline lock: 22 gauge in left jl7 antecubital area, using aseptic technique. Blood collected. 11:44 COVID swab sent to lab. Flu and/or RSV swab sent to lab. jl7 11:49 XRAY Chest (1 view) In Process Unspecified. EDMS 12:18 Chest Pa And Lat (2 Views) XRAY In Process Unspecified. EDMS 12:30 Provided Education on: Medication uses and side effects. jl7 12:30 Patient has correct armband on for positive identification. jl7 13:00 No provider procedures requiring assistance completed. IV discontinued, intact, jl7 bleeding controlled, No redness/swelling at site. Pressure dressing applied. Administered Medications: 11:43 Drug: NS 0.9% IV 1000 ml IV at 1 bolus Per protocol; 1000 mL bolus Route: IV; Rate: 1 jl7 bolus; Site: left antecubital; 12:41 Follow up: IV Status: Completed infusion; IV Intake: 1000ml jl7 11:43 Drug: Ketorolac IVP 15 mg IVP once Route: IVP; Site: left antecubital; jl7 12:42 Follow up: Response: No adverse reaction jl7 12:41 Drug: Oseltamivir PO 75 mg PO once Route: PO; jl7 12:59 Follow up: Response: Medication administered at discharge. jl7 12:41 Drug: Decadron - Dexamethasone IVP 10 mg IVP once Route: IVP; Site: left antecubital; jl7 12:59 Follow up: Response: Medication administered at discharge. jl7 12:41 Drug: Tussionex Pennkinetic ER PO Suspension 5 ml PO once Route: PO; jl7 12:58 Follow up: Response: Medication administered at discharge. jl7 Medication: 12:57 VIS not applicable for this client. jl7 Intake: 12:41 IV: 1000ml; Total: 1000ml. jl7 Outcome: 12:31 Discharge ordered by . sb4 13:00 Discharged to home ambulatory, jl7 13:00 Condition: stable 13:00 Discharge instructions given to patient, Instructed on discharge instructions, follow up and referral plans. medication usage, Demonstrated understanding of instructions, follow-up care, medications, Prescriptions given X 5 13:01 Patient left the ED. jl7 Signatures: Dispatcher [employer] EDMS Sofy Low4 Gregg Garay RN RN [email or web address] Kimmy Whitlock PA-C PAKatherine Ramirez, RN RN mb9 Shanique Bruno, RN RN os Corrections: (The following items were deleted from the chart) 11:45 11:44 Allergies: No Known Allergies; [facility] jl7 11:45 11:44 PSHx: tubal ligation; 7 jl7 12:57 12:25 Reassessment: PILAR Moreno at bedside discussing results and POC [facility] 7
[2023-02-06] MEDS ORDERED: OSELTAMIVIR 75 MG CAP PO ONE (12:45)
[2023-02-06] MEDS ORDERED: HYDROCODONE/CHLORPHEN 5 ML/OSYR ONE (12:47)
[2023-02-06] MEDS ORDERED: dexAMETHasone 10 MG/ML VIAL ONE (12:47)
[2023-02-06 13:28] VITALS: TEMP 98.7; O2SAT 100
[2023-02-06 13:29] VITALS: BP 106/60
--- NOTE | 2023-02-07 07:51 | EKG ---
Test Date: 2023-02-06 Test Time: 11:23:35 Application Chemist: DELW MEASUREMENT RESULTS: Intervals: Rate: 87 AK: 132 QRSD: 94 QT: 354 QTc: 425 Clifford: P: 68 AK: 132 QRS: 101 T: 61 INTERPRETIVE STATEMENTS: Normal sinus rhythm with sinus arrhythmia Normal ECG No previous ECG available for comparison Electronically Signed On 02-07-23 07:49:45 CDT by Marty Asif
== END 2023-02-06 13:01 | disposition home or self-care (01) ==
LOC: ER 11:06
DX: J10.1 Influenza due to other identified influenza virus with other respiratory manifestations (principal); Z11.52 Encounter for screening for COVID-19
CPT/HCPCS: 96361; 93005; 85025; 80048; 36415; 83735; 82550; 85379; 80076; 84484; 87804 ×2; 71045; 71046; 96375; 96374; 99284; 87811; J1100; J7030

== ENCOUNTER → 2023-07-01 | Emergency (ER) | payer SELFPAY ==
[~2023-07-01] MED LIST: FENTANYL CITR 100 MCG/2 ML ONE; MORPHINE 4 MG/ML SYR ONE; NA CHLORIDE 0.9% 1,000 ML ONE; ONDANSETRON 4 MG/2 ML VIAL ONE
[2023-07-01 12:01] LABS: Specific Gravity 1.012 (1.005-1.030); Urine Bilirubin NEGATIVE (Negative); Urine Blood Negative (Negative); Urine Clarity Clear (Clear); Urine Color Light-Yellow (Yellow); Urine Glucose NEGATIVE (Negative); Urine Ketones NEGATIVE (Negative); Urine Microscopic Reflex YN NO UMIC; Urine Nitrite NEGATIVE (Negative); Urine Protein NEGATIVE (Negative); Urine Urobilinogen Normal (Normal); Urine pH 5.5 (5.0-7.0)
[2023-07-01 12:11] LABS: Absolute Eosinophils 0.1 K/uL (0-0.5); Absolute Lymphocytes (CBC) 1.5 K/uL (0.7-4.9); Absolute Monocytes 0.6 K/uL (0.1-1.3); Absolute Neutrophil 9.4 K/uL (1.8-8.0); Basophils % 0.3 % (0-1.3); Eosinophils % 0.6 % (0-4.4); Hematocrit 44.5 % (36.0-45.0); Hemoglobin 14.7 g/dL (12.0-15.0); MCH 30.7 pg (27.0-35.0); Monocytes % 4.8 % (3.3-12.3); Neutrophils % 81.3 % (41.7-73.7); Platelets 332 thou/uL (152-406); RBC Red Blood Cell Count 4.79 M/uL (3.86-4.86); Red Cell Distribution Width 13.3 % (12.1-15.2)
--- NOTE | 2023-07-01 12:18 | RAD REPORT ---
EXAM DESCRIPTION: CTStone Protocol - 07/01/2023 12:09 pm CLINICAL HISTORY: FLANK PAIN COMPARISON: No comparisons TECHNIQUE: CT of the abdomen and pelvis was performed. All CT scans are performed using dose optimization technique as appropriate and may include automated exposure control or mA/KV adjustment according to patient size. FINDINGS: Lower chest: No acute abnormality. Liver: No acute abnormality or suspicious lesions. Biliary: No biliary ductal dilatation. Stomach: No significant focal abnormality. Duodenum: No significant focal abnormality. Pancreas: No significant abnormality. Spleen: No significant abnormality. Adrenal: No suspicious lesions. Kidney/ureter: No hydronephrosis. No renal calculi. No definite ureteral calculi. A 4 mm calcificatio n in the region of the left distal ureter favored to be a phlebolith. Retroperitoneum: No retroperitoneal adenopathy. Vascular: No aneurysm. Bowel: No significant focal abnormality.Normal appendix. Peritoneum: No ascites or free air. Bladder: Grossly unremarkable. Reproductive: No adnexal masses. Bones: No acute fracture. Other: n/a IMPRESSION: No acute intra-abdominal or pelvic finding. No definite renal or ureteral calculi. Calci fication in the region of the left distal ureter favored to represent a phlebolith. No hydronephrosis . Normal appendix.
[2023-07-01 12:20] LABS: Albumin 4.3 g/dL (3.4-5.0); Albumin/Globulin Ratio 1.1 (1.1-1.8); Anion Gap 7.3 mEq/L (5.0-15.0); Bilirubin Total 0.5 mg/dL (0.2-1.0); Globulin 3.8 g/dL (2.3-3.5); Potassium 4.3 mEq/L (3.5-5.1); Protein, Total 8.1 g/dL (6.4-8.2)
--- NOTE | 2023-07-01 13:08 | RAD REPORT ---
EXAM DESCRIPTION: RAD - Chest Single View - 07/01/2023 1:01 pm CLINICAL HISTORY: CHEST PAIN COMPARISON: Chest Pa And Lat (2 Views) dated 02/06/2023; Chest Single View dated 02/06/2023 FINDINGS: Lines: None. Lungs: No evidence of edema or pneumonia. Pleural: No significant pleural effusions or pneumothorax. Cardiac: The heart size is within normal limits. Mediastinum: Within normal limits. Bones: No acute fractures. Other: None IMPRESSION: No acute cardiopulmonary disease.
--- NOTE | 2023-07-01 13:35 | ER ---
Nurse's Notes [facility] Name: Justina Welch Age: 33 yrs Sex: Female : 1990 Arrival Date: 07/01/2023 Time: 11:29 Bed 16 Private MD: Diagnosis: Low back pain;Pilonidal cyst without abscess Presentation: 06/30 11:32 Chief complaint: Patient states: left back pain x 4 days, no urinary problems. ko1 Coronavirus screen: At this time, the client does not indicate any symptoms associated with coronavirus-19. Ebola Screen: No symptoms or risks identified at this time. Initial Sepsis Screen: Does the patient meet any 2 criteria? No. Patient's initial sepsis screen is negative. Does the patient have a suspected source of infection? No. Patient's initial sepsis screen is negative. Risk Assessment: Do you want to hurt yourself or someone else? Patient reports no desire to harm self or others. Onset of symptoms was July 01, 2023. 11:32 Method Of Arrival: Ambulatory ko1 11:32 Acuity: BROOKE 3 ko1 Triage Assessment: 11:36 General: Appears uncomfortable, Behavior is cooperative, appropriate for age. Pain: ko1 Complains of pain in left flank pain. Musculoskeletal: Circulation, motion, and sensation intact. 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 - Social history:: Smoking status: Reported history of juuling and/or vaping. Screenin:11 [facility] ED Fall Risk Assessment (Adult) History of falling in the last 3 months, ph including since admission No falls in past 3 months (0 pts) Confusion or Disorientation No (0 pts) Intoxicated or Sedated No (0 pts) Impaired Gait No (0 pts) Mobility Assist Device Used No (0 pt) Altered Elimination No (0 pt) Score/Fall Risk Level 0 - 2 = Low Risk Oriented to surroundings, Maintained a safe environment, Hourly rounding (assess needs \T\ fall precautionary measures) done. Abuse screen: Denies threats or abuse. Denies injuries from another. Nutritional screening: No deficits noted. Tuberculosis screening: No symptoms or risk factors identified. Assessment: 12:00 General: Appears in no apparent distress. uncomfortable, slender, well groomed, ph Behavior is calm, cooperative, appropriate for age, Denies fever, feeling ill. Pain: Complains of pain in left low back Pain does not radiate. Neuro: Level of Consciousness is awake, alert, obeys commands, Oriented to person, place, time, situation. Cardiovascular: Capillary refill < 3 seconds in bilateral fingers Patient's skin is warm and dry. Respiratory: Airway is patent Respiratory effort is even, unlabored. GI: No signs and/or symptoms were reported involving the gastrointestinal system. Patient currently denies abdominal pain, nausea, vomiting. : Reports pain in left in lower back Denies burning with urination, inability to void, urinary frequency. Musculoskeletal: Circulation, motion, and sensation intact. Range of motion: intact in all extremities. 13:00 Reassessment: Patient appears in no apparent distress at this time. Patient and/or ph family updated on plan of care and expected duration. Pain level reassessed. Patient is alert, oriented x 3, equal unlabored respirations, skin warm/dry/pink. 14:11 Reassessment: Patient appears in no apparent distress at this time. Patient and/or ph family updated on plan of care and expected duration. Pain level reassessed. Patient is alert, oriented x 3, equal unlabored respirations, skin warm/dry/pink. Vital Signs: 11:32 BP 112 / 79; Pulse 90; Resp 15; Temp 97.8; Pulse Ox 99% on R/A; ko1 ED Course: 11:31 Patient arrived in ED. mr 11:32 Chen Maurice FNP is [facility]. jh7 11:32 Johan Ramirez MD is Attending Physician. jh7 11:36 Triage completed. ko1 11:36 Arm band placed on right wrist. Patient placed in an exam room, on a stretcher, on ko1 pulse oximetry, Patient notified of wait time. 11:43 Estelita Smith, RN is Primary Nurse. ph 11:55 Initial lab(s) drawn, by ED staff, sent to lab. Urine collected: clean catch specimen, ph clear. Inserted saline lock: 20 gauge in left antecubital area, using aseptic technique. 11:56 CBC with Diff Sent. ph 11:56 CMP Sent. ph 11:56 Lipase Sent. ph 11:56 Urinalysis w/ reflexes Sent. ph 12:00 Patient has correct armband on for positive identification. Bed in low position. Call ph light in reach. Pulse ox on. NIBP on. 12:00 Provided Education on: time for test results and use of call light. ph 12:11 CT Stone Protocol In Process Unspecified. EDMS 13:03 XRAY Chest (1 view) In Process Unspecified. EDMS 14:12 No provider procedures requiring assistance completed. IV discontinued, intact, ph bleeding controlled, No redness/swelling at site. Pressure dressing applied. Administered Medications: 11:57 Drug: Ondansetron IVP 4 mg IVP once; over 2 minutes Route: IVP; Site: left antecubital; ph 13:40 Follow up: Response: No adverse reaction ph 11:57 Drug: morphine IVP or IV 4 mg IVP once over 4 mins Route: IVP; Infused Over: 4 mins; ph Site: left antecubital; 13:40 Follow up: Response: No adverse reaction ph 13:10 Drug: NS 0.9% IV 1000 ml IV at 1 bolus Per protocol; 1000 mL bolus Route: IV; Rate: 1 ph bolus; Site: left antecubital; 14:08 Follow up: IV Status: Completed infusion; IV Intake: 350ml ph 13:15 Drug: fentaNYL (PF) IVP 50 mcg IVP once Route: IVP; Site: left antecubital; ph 14:09 Follow up: Response: No adverse reaction ph Medication: 14:11 VIS not applicable for this client. ph Intake: 14:08 IV: 350ml; Total: 350ml. ph Outcome: 13:35 Discharge ordered by MD. garces 14:07 Discharged to home ambulatory, ph 14:07 Condition: good 14:07 Discharge instructions given to patient, Instructed on discharge instructions, follow up and referral plans. medication usage, Demonstrated understanding of instructions, follow-up care, medications, Prescriptions given X 3, 14:13 Patient left the ED. ph Signatures: Dispatcher [employer] EDMO Katherine Franz, Reg Reg mr Estelita Smith, RN RN ph Chen Maurice, IMPLEMENTATION ARCHITECT IMPLEMENTATION ARCHITECT Renee Villarreal, RN RN ko1
--- NOTE | 2023-07-01 13:35 | EDPHYS ---
Physician Documentation [facility] Name: Justina Welch Age: 33 yrs Sex: Female : 1990 Arrival Date: 07/01/2023 Time: : Bed 16 Private MD: DARYL Physician Johan Ramirez HPI: 06/30 11:32 This 33 yrs old Female presents to ER via Ambulatory with complaints of Back Pain. jh7 11:32 The patient presents with pain that is acute, with no known mechanism of injury. The jh7 symptoms are located in the left low back. Onset: The symptoms/episode began/occurred 4 day(s) ago. The pain does not radiate. Associated signs and symptoms: The patient has no apparent associated signs or symptoms. The problem was sustained from unknown cause. Severity of symptoms: At their worst the symptoms were severe, earlier today. 33-year-old female reports severe left flank pain for the past 4 days. She denies any injury. Reports movement and palpation of the area worsen symptoms. History of a tubal ligation.. 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 - Social history:: Smoking status: Reported history of juuling and/or vaping. ROS: 11:32 Constitutional: Negative for fever, chills, and weight loss, Eyes: Negative for injury, jh7 pain, redness, and discharge, Neck: Negative for injury, pain, and swelling, Cardiovascular: Negative for chest pain, palpitations, and edema, Respiratory: Negative for shortness of breath, cough, wheezing, and pleuritic chest pain, Abdomen/GI: Negative for abdominal pain, nausea, vomiting, diarrhea, and constipation, MS/Extremity: Negative for injury and deformity, Skin: Negative for injury, rash, and discoloration, Neuro: Negative for headache, weakness, numbness, tingling, and seizure, 11:32 Back: Positive for decreased range of motion, pain at rest, pain with movement, flank pain, on the left, Negative for injury or acute deformity, 11:32 All other systems are negative, Exam: 11:32 Head/Face: Normocephalic, atraumatic. Neck: Trachea midline, no thyromegaly or masses jh7 palpated, and no cervical lymphadenopathy. Supple, full range of motion without nuchal rigidity, or vertebral point tenderness. No Meningismus. Cardiovascular: Regular rate and rhythm with a normal S1 and S2. No gallops, murmurs, or rubs. Normal PMI, no JVD. No pulse deficits. Respiratory: Lungs have equal breath sounds bilaterally, clear to auscultation and percussion. No rales, rhonchi or wheezes noted. No increased work of breathing, no retractions or nasal flaring. Abdomen/GI: Soft, non-tender, with normal bowel sounds. No distension or tympany. No guarding or rebound. No evidence of tenderness throughout. Skin: Warm, dry with normal turgor. Normal color with no rashes, no lesions, and no evidence of cellulitis. MS/ Extremity: Pulses equal, no cyanosis. Neurovascular intact. Full, normal range of motion. Neuro: Awake and alert, GCS 15, oriented to person, place, time, and situation. Motor strength 5/5 in all extremities. Sensory grossly intact. Normal gait. 11:32 Constitutional: The patient appears alert, awake, in obvious pain, 11:32 Back: pain, that is severe, of the left low back, ROM is painful, with all movement, normal spinal alignment noted, CVA tenderness, that is moderate, is noted on the left, muscle spasm, is not present, 11:32 : CVA tenderness, on the left, Vital Signs: 11:32 BP 112 / 79; Pulse 90; Resp 15; Temp 97.8; Pulse Ox 99% on R/A; ko1 MDM: 11:32 Patient medically screened. jh7 14:00 Differential diagnosis: arthritis, chronic back pain, Fracture Joint Injury Ligament jh7 Injury Osteoarthritis ruptured disc, sprain, Ureterolithiasis. Data reviewed: vital signs, nurses notes, lab test result(s), radiologic studies, CT scan, plain films. I considered the following discharge prescriptions or medication management in the emergency department Medications were administered in the Emergency Department. See MAR. Independent interpretation of the following test(s) in the Emergency Department X-Ray: My interpretation is no acute abnormalities . Counseling: I had a detailed discussion with the patient and/or guardian regarding the historical points, exam findings, and any diagnostic results supporting the discharge/admit diagnosis, to return to the emergency department if symptoms worsen or persist or if there are any questions or concerns that arise at home. Response to treatment: the patient's symptoms have mildly improved after treatment. Special discussion: I discussed with the patient the need to follow-up with the PCP/specialist for the noted incidental finding on X-ray/CT scanning. Patient has a known pilonidal cyst and stated that she feels like it is flaring up. Agreed to prescribe doxycycline and have the patient follow-up with her PCP.. 06/30 11:41 Order name: CBC with Diff; Complete Time: 12:26 [facility] 06/30 11:41 Order name: CMP; Complete Time: 12: [facility] 06/30 11:41 Order name: Lipase; Complete Time: 12: [facility] 06/30 11:41 Order name: Urinalysis w/ reflexes; Complete Time: 12:26 [facility] 06/30 11:41 Order name: CT Stone Protocol; Complete Time: 12: [facility] 06/30 12:35 Order name: XRAY Chest (1 view); Complete Time: 13:20 [facility] 06/30 11:41 Order name: IV Saline Lock; Complete Time: 11:56 [facility] 06/30 11:41 Order name: Labs collected and sent; Complete Time: 11:56 [facility] Administered Medications: 11:57 Drug: Ondansetron IVP 4 mg IVP once; over 2 minutes Route: IVP; Site: left antecubital; ph 13:40 Follow up: Response: No adverse reaction ph 11:57 Drug: morphine IVP or IV 4 mg IVP once over 4 mins Route: IVP; Infused Over: 4 mins; ph Site: left antecubital; 13:40 Follow up: Response: No adverse reaction ph 13:10 Drug: NS 0.9% IV 1000 ml IV at 1 bolus Per protocol; 1000 mL bolus Route: IV; Rate: 1 ph bolus; Site: left antecubital; 14:08 Follow up: IV Status: Completed infusion; IV Intake: 350ml ph 13:15 Drug: fentaNYL (PF) IVP 50 mcg IVP once Route: IVP; Site: left antecubital; ph 14:09 Follow up: Response: No adverse reaction ph Disposition Summary: 07/01/23 13:35 Discharge Ordered Notes: Location: Home [facility] Problem: new [facility] Symptoms: have improved [facility] Condition: Stable [facility] Diagnosis - Low back pain [facility] - Pilonidal cyst without abscess [facility] Followup: [facility] - With: Private Physician - When: 2 - 3 days - Reason: Recheck today's complaints Discharge Instructions: - Discharge Summary Sheet [facility] - Acute Back Pain, Adult [facility] - Musculoskeletal Pain [facility] - Pilonidal Cyst [facility] Forms: - Work release form - Medication Reconciliation Form [facility] - Thank You Letter [facility] - Antibiotic Education [facility] - Patient Portal Instructions [facility] - Leadership Thank You Letter [facility] Prescriptions: - Zanaflex 4 mg Oral Tablet - take 1 tablet ORAL route every 8 hours As needed; 20 tablet; Refills: 0, [facility] Product Selection Permitted - Doxycycline Hyclate 100 mg Oral tablet - take 1 tablet ORAL route every 12 hours for 7 days; 14 tablet; Refills: 0, [facility] Product Selection Permitted - Medrol (Shaw) 4 mg Oral Tablets, Dose Pack - take 1 tablet ORAL route as directed - follow package instructions; 1 packet; [facility] Refills: 0, Product Selection Permitted Signatures: Dispatcher [employer] Estelita Ortiz, RN RN Chen Maurice FNP [place] [id number] Renee Aguiar, RN RN ko1
[2023-07-01 14:33] VITALS: BP 112/79; TEMP 97.8; O2SAT 99
== END ==
LOC: ER 11:29
DX: L05.91 Pilonidal cyst without abscess (principal)
CPT/HCPCS: 36415; 71045; 74176; 76377; 80053; 81003; 83690; 85025; 96361; 96374; 96375; 99284; J2405; J3010; J7030

== ENCOUNTER 2024-08-11 10:32 | Emergency (ER) | payer SELFPAY ==
[2024-08-11] MEDS ORDERED: ONDANSETRON 4 MG/2 ML VIAL ONE (10:55)
[2024-08-11] MEDS ORDERED: NA CHLORIDE 0.9% 1,000 ML ONE (10:56)
[2024-08-11] MEDS ORDERED: MORPHINE 4 MG/ML SYR ONE (10:56)
[2024-08-11 11:29] LABS: Specific Gravity > 1.030 (1.005-1.030)
[2024-08-11 11:30] LABS: Specific Gravity > 1.030 (1.005-1.030); Urine Bacteria None Seen /HPF (<20); Urine Bilirubin NEGATIVE (Negative); Urine Blood Negative (Negative); Urine Clarity Extremely Turbid (Clear); Urine Color Yellow (Yellow); Urine Glucose NEGATIVE (Negative); Urine Ketones 2+ (Negative); Urine Micro Reflex YN NO BILL MICROSCOPIC; Urine Mucus 4+ /HPF (None Seen); Urine Nitrite NEGATIVE (Negative); Urine Protein 1+ (Negative); Urine RBC <5 /HPF (None Seen); Urine Urobilinogen Normal (Normal); Urine WBC <5 /HPF (<5); Urine Yeast (Budding) Trace /HPF (None Seen); Urine pH 6.5 (5.0-7.0)
[2024-08-11 11:32] LABS: Absolute Eosinophils 0.1 K/uL (0-0.5); Absolute Lymphocytes (CBC) 1.3 K/uL (0.7-4.9); Absolute Monocytes 0.5 K/uL (0.1-1.3); Absolute Neutrophil 4.3 K/uL (1.8-8.0); Basophils % 0.2 % (0-1.3); Eosinophils % 0.9 % (0-4.4); Hematocrit 41.1 % (36.0-45.0); Hemoglobin 14.2 g/dL (12.0-15.0); Lymphocytes % 20.7 % (15.3-44.8); MCH 32.6 pg (27.0-35.0); MCHC 34.5 g/dL (32.0-36.0); MCV 94.6 fL (80-100); MPV 6.6 fL (7.6-11.3); Monocytes % 8.1 % (3.3-12.3); Neutrophils % 70.1 % (41.7-73.7); Nucleated Red Blood Cells % 0.2 % (0-0); Platelets 330 thou/uL (152-406); RBC Red Blood Cell Count 4.34 M/uL (3.86-4.86); Red Cell Distribution Width 13.5 % (12.1-15.2)
[2024-08-11] MEDS ORDERED: CEFTRIAXONE 1000 MG/VIAL ONE (11:39)
[2024-08-11 11:44] LABS: Albumin 3.8 g/dL (3.4-5.0); Albumin/Globulin Ratio 1.3 (1.1-1.8); Alkaline Phosphatase 40 U/L (45-117); Anion Gap 8.2 mEq/L (5.0-15.0); BUN Blood Urea Nitrogen 10 mg/dL (7-18); Bicarbonate 25 mEq/L (21-32); Bilirubin Total 0.5 mg/dL (0.2-1.0); Globulin 2.9 g/dL (2.3-3.5); Glomerular Filtration Rate 96 ml/min (=/>90); Glucose Level 115 mg/dL (74-106); Potassium 4.2 mEq/L (3.5-5.1); Protein, Total 6.7 g/dL (6.4-8.2); Sodium Level 140 mEq/L (136-145)
[2024-08-11 11:46] LABS: ALT/SGPT < 14 U/L (13-56); AST/SGOT < 10 U/L (15-37)
--- NOTE | 2024-08-11 12:05 | ER ---
Nurse's Notes [facility] Name: Justina Welch Age: 34 yrs Sex: Female : 1990 Arrival Date: 08/11/2024 Time: 10:32 Bed 20 Private MD: Diagnosis: UTI/ Urinary tract infection, site not specified;Candidiasis of vulva and vagina Presentation: 08/11 10:44 Chief complaint: Patient states: L lower abd pain, burning with urination and frequency ss x 2 weeks. Pt reports she took Macrobid for a week with slight relief of symptoms, but have since gotten worse. Is currently taking Amoxicillin for a upcoming dental/ jaw procedure. Coronavirus screen: Client denies travel out of the [place] in the last 14 days. Ebola Screen: Patient denies exposure to infectious person. Patient denies travel to an Ebola-affected area in the 21 days before illness onset. Initial Sepsis Screen: Does the patient meet any 2 criteria? No. Patient's initial sepsis screen is negative. Does the patient have a suspected source of infection? No. Patient's initial sepsis screen is negative. Risk Assessment: Do you want to hurt yourself or someone else? Patient reports no desire to harm self or others. Onset of symptoms was July 28, 2024. 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 - Infectious Disease History:: Denies. - Social history:: Smoking status: Reported history of juuling and/or vaping. Screenin:26 [facility] ED Fall Risk Assessment (Adult) History of falling in the last 3 months, ld1 including since admission No falls in past 3 months (0 pts) Confusion or Disorientation No (0 pts) Intoxicated or Sedated No (0 pts) Impaired Gait No (0 pts) Mobility Assist Device Used No (0 pt) Altered Elimination No (0 pt) Score/Fall Risk Level 0 - 2 = Low Risk Oriented to surroundings, Hourly rounding (assess needs \T\ fall precautionary measures) done. Abuse screen: Denies threats or abuse. Denies injuries from another. Nutritional screening: No deficits noted. Tuberculosis screening: No symptoms or risk factors identified. Assessment: 11:26 General: Appears in no apparent distress. uncomfortable, Behavior is calm, cooperative, ld1 appropriate for age. Pain: Complains of pain in abdomen Pain does not radiate. Pain currently is 8 out of 10 on a pain scale. Quality of pain is described as throbbing, Pain began 2 weeks Is intermittent. Neuro: Level of Consciousness is awake, alert, obeys commands, Oriented to person, place, time, situation. Cardiovascular: Capillary refill < 3 seconds Patient's skin is warm and dry. Rhythm is sinus rhythm. Respiratory: Airway is patent Respiratory effort is even, unlabored. GI: Abdomen is flat, non-distended, Bowel sounds present X 4 quads. Abd is soft Abdomen is tender to palpation X 4 quads. Reports lower abdominal pain, nausea, vomiting. : No signs and/or symptoms were reported regarding the genitourinary system. EENT: No signs and/or symptoms were reported regarding the EENT system. Derm: No signs and/or symptoms reported regarding the dermatologic system. Musculoskeletal: No signs and/or symptoms reported regarding the musculoskeletal system. 12:23 Reassessment: Patient appears in no apparent distress at this time. No changes from ld1 previously documented assessment. Patient and/or family updated on plan of care and expected duration. Pain level reassessed. Patient is alert, oriented x 3, equal unlabored respirations, skin warm/dry/pink. Vital Signs: 10:44 BP 149 / 104; Resp 17; Temp 98.5(O); Pulse Ox 98% ; Weight 70.31 kg; Height 5 ft. 7 in. ss ; 11:26 BP 122 / 62; Pulse 69; Resp 18; Pulse Ox 98% on R/A; Pain 8/10; ld1 12:01 BP 122 / 77; Pulse 59; Resp 18; Pulse Ox 100% on R/A; ld1 12:23 BP 122 / 77; Pulse 63; Resp 18; Pulse Ox 100% on R/A; ld1 10:44 Body Mass Index 24.28 (70.31 kg, 170.18 cm) 11:26 Pain Scale: Adult ld1 ED Course: 10:34 Patient arrived in ED. mr 10:35 Beka Live, RAKESH is PHCP. dr5 10:35 Johan Ramirez MD is Attending Physician. dr5 10:42 Opal Mims, SANDOVAL is Primary Nurse. ld1 10:46 Triage completed. ss 10:46 Arm band placed on right wrist. ss 11:26 Patient has correct armband on for positive identification. Placed in gown. Bed in low ld1 position. Call light in reach. Side rails up X2. Pulse ox on. NIBP on. Door closed. Noise minimized. Warm blanket given. 11:26 No provider procedures requiring assistance completed. Inserted saline lock: 20 gauge ld1 in left antecubital area, using aseptic technique. Blood collected. Flushed with 10 mL NS Missed attempt(s): 20 gauge in right antecubital area. 11:28 UA W/ Microscopic Sent. ld1 11:28 CBC with Diff Sent. ld1 11:28 CMP Sent. ld1 11:28 Test, Urine Sent. ld1 12:23 IV discontinued, intact, bleeding controlled, No redness/swelling at site. ld1 Administered Medications: 11:28 Drug: Ondansetron IVP 4 mg IVP once; over 2 minutes Route: IVP; Site: left antecubital; ld1 11:50 Follow up: Response: No adverse reaction ld1 11:28 Drug: NS 0.9% IV 1000 ml IV at 1 bolus Per protocol; to be given as a bolus over 60 ld1 minutes Route: IV; Rate: 1 bolus; Site: left antecubital; 12:24 Follow up: Response: No adverse reaction; IV Status: Completed infusion; IV Intake: ld1 1000ml 11:28 Drug: morphine IVP or IV 4 mg IVP once over 4 mins Route: IVP; Infused Over: 4 mins; ld1 Site: left antecubital; 11:50 Follow up: Response: No adverse reaction ld1 11:53 Drug: Rocephin IV 1 grams IV at per protocol once; Given slow IV push per pharmacy ld1 instructions Route: IV; Rate: per protocol; Site: left antecubital; 12:23 Follow up: Response: No adverse reaction; IV Status: Completed infusion; IV Intake: ld1 100ml Medication: 11:26 VIS not applicable for this client. ld1 Intake: 12:23 IV: 100ml; Total: 100ml. ld1 12:24 IV: 1000ml; Total: 1100ml. ld1 Outcome: 12:05 Discharge ordered by . dr5 12:23 Discharged to home ambulatory, with family, ld1 12:23 Condition: stable 12:23 Discharge instructions given to patient, family, Instructed on discharge instructions, follow up and referral plans. medication usage, Demonstrated understanding of instructions, follow-up care, medications, Prescriptions given X 2, 12:24 Patient left the ED. ld1 Signatures: Katherine Franz, Reg Reg mr Nayely Felix, RN RN ss Opal Mims RN RN ld1 Beka Live, DISABILITY SPECIALIST-C DISABILITY SPECIALIST-Cdr5
--- NOTE | 2024-08-11 12:05 | EDPHYS ---
Physician Documentation [facility] Name: Justina Welch Age: 34 yrs Sex: Female : 1990 Arrival Date: 08/11/2024 Time: 10:32 Bed 20 Private MD: Johan Sanchez HPI: 08/11 10:46 This 34 yrs old Female presents to ER via Ambulatory with complaints of dr5 Abdominal Pain, Vomiting. 10:46 The patient presents with abdominal pain. Patient is a 34-year-old female with no past dr5 medical history coming in with suprapubic abdominal pain, dysuria, subjective fevers at home. Patient reports that she has completed a week of Macrobid and started taking amoxicillin last Monday for dental infection. Patient reports that her dysuria has not improved and is having difficulty going. . CLINICAL UNIT COORDINATOR: 10:46 LMP 06/27/2024, unknown ss Historical: - Allergies: 10:46 No Known Allergies; ss - Home Meds: 10:46 Amoxicillin Oral [Active]; ss - PMHx: 10:46 None; ss - PSHx: 10:46 Ligation of fallopian tube; ss - Immunization history:: Adult Immunizations up to date. - Infectious Disease History:: Denies. - Social history:: Smoking status: Reported history of juuling and/or vaping. ROS: 10:46 Constitutional: as per hpi dr5 Exam: 10:46 Constitutional: This is a well developed, well nourished patient who is awake, alert, dr5 and in no acute distress. Head/Face: Normocephalic, atraumatic. Eyes: Pupils equal round and reactive to light, extra-ocular motions intact. Lids and lashes normal. Conjunctiva and sclera are non-icteric and not injected. Cornea within normal limits. Periorbital areas with no swelling, redness, or edema. Neck: Trachea midline, no thyromegaly or masses palpated, and no cervical lymphadenopathy. Supple, full range of motion without nuchal rigidity, or vertebral point tenderness. No Meningismus. Chest/axilla: Normal chest wall appearance and motion. Nontender with no deformity. No lesions are appreciated. Cardiovascular: Regular rate and rhythm with a normal S1 and S2. Normal PMI, no JVD. No pulse deficits. Respiratory: Lungs have equal breath sounds bilaterally, clear to auscultation. No rales, rhonchi or wheezes noted. No increased work of breathing, no retractions or nasal flaring. Back: No spinal tenderness. No costovertebral tenderness noted bilaterally. Full range of motion. Skin: Warm, dry with normal turgor. Normal color with no rashes, no lesions, and no evidence of cellulitis. MS/ Extremity: Pulses equal, no cyanosis. Neurovascular intact. Full, normal range of motion. 10:46 Abdomen/GI: Inspection: abdomen appears normal, Bowel sounds: normal, Palpation: mild abdominal tenderness, in the suprapubic area, Vital Signs: 10:44 BP 149 / 104; Resp 17; Temp 98.5(O); Pulse Ox 98% ; Weight 70.31 kg; Height 5 ft. 7 in. ss ; 11:26 BP 122 / 62; Pulse 69; Resp 18; Pulse Ox 98% on R/A; Pain 8/10; ld1 12:01 BP 122 / 77; Pulse 59; Resp 18; Pulse Ox 100% on R/A; ld1 12:23 BP 122 / 77; Pulse 63; Resp 18; Pulse Ox 100% on R/A; ld1 10:44 Body Mass Index 24.28 (70.31 kg, 170.18 cm) ss 11:26 Pain Scale: Adult ld1 MDM: 10:35 Medical Screening Exam initiated dr5 12:05 Differential diagnosis: urinary tract infection, Pyelonephritis, Terese. Data dr5 reviewed: vital signs, nurses notes, lab test result(s). I considered the following discharge prescriptions or medication management in the emergency department Medications were administered in the Emergency Department. See MAR. Care significantly affected by the following Social Determinants of Health: Poor access to healthcare and/or lack of insurance, Poor access to transportation, Problems related to employment. Counseling: I had a detailed discussion with the patient and/or guardian regarding the historical points, exam findings, and any diagnostic results supporting the discharge/admit diagnosis, the presence of at least one elevated blood pressure reading (>120/80) during this emergency department visit, lab results, the need for outpatient follow up, for definitive care, a family practitioner, to return to the emergency department if symptoms worsen or persist or if there are any questions or concerns that arise at home. ED course: Rocephin injection given for urinary tract infection in ER. Will have patient start Keflex tomorrow twice daily for the next 10 days. Diflucan given 1 dose for Terese noted in urine. Recommending patient continue taking amoxicillin from previous doctor. Will have patient follow-up with primary care doctor this next week for reevaluation of symptoms. Recommend alternating Tylenol Motrin as needed for pain. All questions answered.. 08/11 10:45 Order name: CBC with Diff; Complete Time: 11:35 dr5 08/11 10:45 Order name: CMP; Complete Time: 11:47 dr5 08/11 10:45 Order name: Test, Urine; Complete Time: 11:32 dr5 08/11 10:45 Order name: UA W/ Microscopic; Complete Time: 11:32 dr5 08/11 10:45 Order name: IV Saline Lock; Complete Time: 11:28 dr5 08/11 10:45 Order name: Labs collected and sent; Complete Time: 11:28 dr5 Administered Medications: 11:28 Drug: Ondansetron IVP 4 mg IVP once; over 2 minutes Route: IVP; Site: left antecubital; ld1 11:50 Follow up: Response: No adverse reaction ld1 11:28 Drug: NS 0.9% IV 1000 ml IV at 1 bolus Per protocol; to be given as a bolus over 60 ld1 minutes Route: IV; Rate: 1 bolus; Site: left antecubital; 12:24 Follow up: Response: No adverse reaction; IV Status: Completed infusion; IV Intake: ld1 1000ml 11:28 Drug: morphine IVP or IV 4 mg IVP once over 4 mins Route: IVP; Infused Over: 4 mins; ld1 Site: left antecubital; 11:50 Follow up: Response: No adverse reaction ld1 11:53 Drug: Rocephin IV 1 grams IV at per protocol once; Given slow IV push per pharmacy ld1 instructions Route: IV; Rate: per protocol; Site: left antecubital; 12:23 Follow up: Response: No adverse reaction; IV Status: Completed infusion; IV Intake: ld1 100ml Disposition: 22:19 Co-signature as Attending Physician, Johan SANDS I agree with the assessment and mary carmen plan of care. Disposition Summary: 08/11/24 12:05 Discharge Ordered Notes: Location: Home dr5 Condition: Stable dr5 Diagnosis - UTI/ Urinary tract infection, site not specified dr5 - Candidiasis of vulva and vagina dr5 Followup: dr5 - With: Emergency Department - When: As needed - Reason: Worsening of condition Followup: dr5 - With: Private Physician - When: 1 - 2 days - Reason: Recheck today's complaints, Continuance of care, Re-evaluation by your physician Discharge Instructions: - Discharge Summary Sheet dr5 - Vaginal Yeast Infection, Adult dr5 - Urinary Tract Infection, Adult, [id number] dr5 Forms: - Medication Reconciliation Form dr5 - Antibiotic Education dr5 - Patient Portal Instructions dr5 - Leadership Thank You Letter dr5 Prescriptions: - Cephalexin 500 mg Oral Capsule - take 1 capsule ORAL route every 12 hours for 10 days; 20 capsule; Refills: 0, dr5 Product Selection Permitted - Fluconazole 150 mg Oral tablet - take 1 tablet ORAL route once daily for 1 day; 1 tablet; Refills: 0, Product dr5 Selection Permitted Signatures: Dispatcher [employer] Johan Flannery MD MD cha Blanchard, Shelby RN RN Opal Sarah RN RN ld1 Beka Live, [employer] ARCHITECT-C [employer]UT[employer] ARCHITECT-Cdr5
[2024-08-11 13:02] VITALS: TEMP 98.5
[2024-08-11 13:05] VITALS: BP 122/77; O2SAT 100
== END 2024-08-11 12:24 | disposition home or self-care (01) ==
LOC: ER 10:32
DX: N39.0 Urinary tract infection, site not specified (principal); B37.31 Acute candidiasis of vulva and vagina
CPT/HCPCS: 36415; 80053; 81001; 81025; 85025; 96365; 96375; 99284; J0696; J2405; J7030

== ENCOUNTER 2025-02-06 11:06 | Emergency (ER) | payer SELFPAY ==
[2025-02-06] MEDS ORDERED: LIDOCAINE 1% 20 ML MDV ONE (11:40)
--- NOTE | 2025-02-06 12:37 | ER ---
Nurse's Notes [facility] Name: Justina Welch Age: 35 yrs Sex: Female : 1990 Arrival Date: 02/06/2025 Time: 11:06 Bed 18 Private MD: Diagnosis: Laceration without foreign body of right ring finger without damage to nail Presentation: 02/06 11:18 Chief complaint: Patient states: she cut her finger when cutting claudette prior to ap3 arrival. patient has laceration to right thumb and right ring finger. patient currently rates her pain as a 10/10 on the pain scale. Coronavirus screen: At this time, the client does not indicate any symptoms associated with coronavirus-19. Ebola Screen: No symptoms or risks identified at this time. Initial Sepsis Screen: Does the patient meet any 2 criteria? No. Patient's initial sepsis screen is negative. Does the patient have a suspected source of infection? No. Patient's initial sepsis screen is negative. Risk Assessment: Do you want to hurt yourself or someone else? Patient reports no desire to harm self or others. Onset of symptoms was February 06, 2025. 11:18 Method Of Arrival: Ambulatory ap3 11:18 Acuity: BROOKE 4 ap3 Triage Assessment: 11:20 General: Appears in no apparent distress. Behavior is calm, cooperative, appropriate ap3 for age. Pain: Complains of pain in right hand. Neuro: Level of Consciousness is awake, alert, obeys commands, Oriented to person, place, time, situation, Appropriate for age Gait is steady, Speech is normal. Cardiovascular: Patient's skin is warm and dry. Respiratory: Airway is patent Respiratory effort is even, unlabored, Respiratory pattern is regular, symmetrical. Historical: - Allergies: 11:19 No Known Allergies; ap3 - PMHx: 11:22 None; ap3 - PSHx: 11:19 Ligation of fallopian tube; ap3 - Immunization history:: Last tetanus immunization: unknown. - Infectious Disease History:: Denies. - Social history:: Smoking status: Patient reports the use of cigarette tobacco products, Reported history of juuling and/or vaping. Screenin:21 [facility] ED Fall Risk Assessment (Adult) History of falling in the last 3 months, ap3 including since admission No falls in past 3 months (0 pts) Confusion or Disorientation No (0 pts) Intoxicated or Sedated No (0 pts) Impaired Gait No (0 pts) Mobility Assist Device Used No (0 pt) Altered Elimination No (0 pt) Score/Fall Risk Level 0 - 2 = Low Risk Oriented to surroundings, Maintained a safe environment, Educated pt \T\ family on fall prevention, incl call for assistance when getting out of bed, Assessed \T\ reinforced patient's understanding of fall precautions, Hourly rounding (assess needs \T\ fall precautionary measures) done, Used ambulatory aids as needed (educated on \T\ assisted with). Abuse screen: Denies threats or abuse. Nutritional screening: No deficits noted. Tuberculosis screening: No symptoms or risk factors identified. 12:22 [facility] ED Fall Risk Assessment (Adult) Score/Fall Risk Level 0 - 2 = Low Risk. cm10 Assessment: 12:44 General: Appears in no apparent distress. uncomfortable, Behavior is calm, cooperative, dd2 appropriate for age. Pain: Complains of pain in palmar aspect of distal phalanx of right ring finger. Neuro: No deficits noted. Cardiovascular: No deficits noted. Respiratory: No deficits noted. GI: No deficits noted. No signs and/or symptoms were reported involving the gastrointestinal system. : No deficits noted. No signs and/or symptoms were reported regarding the genitourinary system. EENT: No deficits noted. No signs and/or symptoms were reported regarding the EENT system. Derm: Wound noted palmar aspect of distal phalanx of right ring finger. Derm:. Musculoskeletal: Circulation, motion, and sensation intact. Range of motion: intact in all extremities. Injury Description: Laceration sustained to palmar aspect of distal phalanx of right ring finger is clean, 0.5 to 2.5 cm long, moderate bleeding noted at this time. Vital Signs: 11:18 BP 130 / 80; Pulse 74; Resp 16; Temp 97.5; Pulse Ox 100% ; Weight 72.57 kg; Height 5 ap3 ft. 7 in. ; Pain 10/10; 12:46 BP 126 / 75; Pulse 78; Resp 16; Pulse Ox 100% on R/A; dd2 11:18 Body Mass Index 25.06 (72.57 kg, 170.18 cm) ap3 11:18 Pain Scale: Adult ap3 Yazmin Coma Score: 12:44 Eye Response: spontaneous(4). Verbal Response: oriented(5). Motor Response: obeys dd2 commands(6). Total: 15. ED Course: 11:08 Patient arrived in ED. al6 11:10 Beka Live F[facility]-C [facility]5 11:10 Milton Jay MD is Attending Physician. dr5 11:19 Triage completed. ap3 11:22 Arm band placed on left wrist. ap3 12:14 Lulú Nixon RN is Primary Nurse. ll1 12:44 Patient has correct armband on for positive identification. Call light in reach. Client dd2 placed on continuous cardiac and pulse oximetry monitoring. NIBP monitoring applied. Door closed. Noise minimized. Verbal reassurance given. 12:44 Assist provider with laceration repair on palmar aspect of distal phalanx of right ring dd2 finger that was 2.5 cm. or less using sutures. Set up tray. Performed by Beka CAMERON Dressed with 4X4s, Patient tolerated well. 12:58 Provided Education on: D/C EDUCATION. dd2 12:58 Patient did not have IV access during this emergency room visit. dd2 Administered Medications: 12:42 Drug: Lidocaine Infiltration (1 %) 20 ml 20 ml Infiltration once; to bedside Volume: 20 dd2 ml; Route: Infiltration; Site: wound; 12:59 Follow up: Response: No adverse reaction dd2 Medication: 12:44 VIS not applicable for this client. dd2 Outcome: 12:36 Discharge ordered by MD. dr5 12:57 Discharged to home ambulatory, dd2 12:57 Condition: stable 12:57 Discharge instructions given to patient, Instructed on discharge instructions, follow up and referral plans. Demonstrated understanding of instructions, follow-up care, 13:00 Patient left the ED. dd2 Signatures: Rocio Begum RN RN ap3 Lulú Nixon, SANDOVAL RN ll1 Richelle Mayo RN RN cm10 ASHA KINCAID RN RN dd2 Beka Live FNP-C FNP-[facility]5 Margaret Nascimento al6
--- NOTE | 2025-02-06 12:37 | EDPHYS ---
Physician Documentation [facility] Name: Justina Welch Age: 35 yrs Sex: Female : 1990 Arrival Date: 02/06/2025 Time: 11:06 Bed 18 Private MD: ED Physician Milton Jay HPI: 02/06 12:37 This 35 yrs old Female presents to ER via Ambulatory with complaints of dr5 Finger Injury. 12:37 Associated injuries: The patient sustained right hand. Onset: The symptoms/episode dr5 began/occurred acutely. Patient is a 35-year-old female with no past medical history coming in with laceration from knife at work that occurred prior to arrival. Patient has laceration to anterior right distal ring finger. Patient states that she is up-to-date on her tetanus shot. Historical: - Allergies: 11:19 No Known Allergies; ap3 - PMHx: 11:22 None; ap3 - PSHx: 11:19 Ligation of fallopian tube; ap3 - Immunization history:: Last tetanus immunization: unknown. - Infectious Disease History:: Denies. - Social history:: Smoking status: Patient reports the use of cigarette tobacco products, Reported history of juuling and/or vaping. ROS: 12:37 Constitutional: as per hpi dr5 Exam: 12:37 Constitutional: This is a well developed, well nourished patient who is awake, alert, dr5 and in no acute distress. Head/Face: Normocephalic, atraumatic. Eyes: Pupils equal round and reactive to light, extra-ocular motions intact. Lids and lashes normal. Conjunctiva and sclera are non-icteric and not injected. Cornea within normal limits. Periorbital areas with no swelling, redness, or edema. Neck: Trachea midline, no thyromegaly or masses palpated, and no cervical lymphadenopathy. Supple, full range of motion without nuchal rigidity, or vertebral point tenderness. No Meningismus. Chest/axilla: Normal chest wall appearance and motion. Nontender with no deformity. No lesions are appreciated. Cardiovascular: Regular rate and rhythm with a normal S1 and S2. Normal PMI, no JVD. No pulse deficits. Respiratory: Lungs have equal breath sounds bilaterally, clear to auscultation. No rales, rhonchi or wheezes noted. No increased work of breathing, no retractions or nasal flaring. Abdomen/GI: Soft, non-tender, non-distended Back: No spinal tenderness. No costovertebral tenderness. Full range of motion. Skin: Warm, dry with normal turgor. Normal color with no rashes, no lesions, and no evidence of cellulitis. MS/ Extremity: Pulses equal, no cyanosis. Neurovascular intact. Full, normal range of motion. Neuro: Awake and alert, GCS 15, oriented to person, place, time, and situation. Cranial nerves II-XII grossly intact. Motor strength 5/5 in all extremities. Sensory grossly intact. Cerebellar exam normal. Normal gait. 12:37 Musculoskeletal/extremity: Extremities: grossly normal except: noted in the palmar aspect of distal phalanx of right ring finger: laceration, ROM: no acute changes, intact in all extremities, Circulation is intact in all extremities. Sensation intact. Tendon exam: specific tendon testing normal through active and passive range of motion Vital Signs: 11:18 BP 130 / 80; Pulse 74; Resp 16; Temp 97.5; Pulse Ox 100% ; Weight 72.57 kg; Height 5 ap3 ft. 7 in. ; Pain 10/10; 12:46 BP 126 / 75; Pulse 78; Resp 16; Pulse Ox 100% on R/A; dd2 11:18 Body Mass Index 25.06 (72.57 kg, 170.18 cm) ap3 11:18 Pain Scale: Adult ap3 Yazmin Coma Score: 12:44 Eye Response: spontaneous(4). Verbal Response: oriented(5). Motor Response: obeys dd2 commands(6). Total: 15. Laceration: 12:37 Wound Repair of 2cm ( 0.8in ) subcutaneous laceration to palmar aspect of distal dr5 phalanx of right ring finger. Linear shaped.. Distal neuro/vascular/tendon intact. Anesthesia: Local anesthetic administered with 2 mls of 1% lidocaine. Wound prep: Moderate cleansing by me. Skin closed with 2 4-0 Prolene using simple sutures and sterile technique. Dressed with non-adherent dressing. Patient tolerated well. MDM: 11:11 Medical Screening Exam initiated dr5 12:37 Differential diagnosis: Laceration, abrasion, tendon injury. Data reviewed: vital dr5 signs, nurses notes. Consideration of Admission/Observation Escalation of care including admission/observation considered. Escalation considered patient found to have tendon involvement. I considered the following discharge prescriptions or medication management in the emergency department I discussed and recommended Over The Counter medications, Medications were administered in the Emergency Department. See MAR. Care significantly affected by the following Social Determinants of Health: Poor access to healthcare and/or lack of insurance, Poor access to transportation, Problems related to employment. Counseling: I had a detailed discussion with the patient and/or guardian regarding the historical points, exam findings, and any diagnostic results supporting the discharge/admit diagnosis, the presence of at least one elevated blood pressure reading (>120/80) during this emergency department visit, the need for outpatient follow up, for definitive care, a family practitioner, to return to the emergency department if symptoms worsen or persist or if there are any questions or concerns that arise at home. Medication response: Lidocaine. Response to treatment: the patient's symptoms have markedly improved after treatment, the patient is now symptom free. Special discussion: I discussed with the patient/guardian in detail that at this point there is no indication for admission to the hospital. It is understood, however, that if the symptoms persist or worsen the patient needs to return immediately for re-evaluation. Based on the history and exam findings, there is no indication for further emergent testing or inpatient evaluation. I discussed with the patient/guardian the need to see the primary care provider for further evaluation of the symptoms. ED course: Will have patient return for suture movable in 7 to 10 days. All question answered. Strict ER precautions given. Wound care given and laceration care instructions given. . 02/06 11:29 Order name: Dressing - Wound; Complete Time: 12:14 dr5 02/06 11:29 Order name: Gloves, Sterile; Complete Time: 12: dr5 02/06 11:29 Order name: Prolene, Sutures; Complete Time: 12: dr5 02/06 11:29 Order name: Setup Suture Tray; Complete Time: 12: dr5 02/06 12:36 Order name: Wound Care: Dress wound please; Complete Time: 12:42 dr5 Administered Medications: 12:42 Drug: Lidocaine Infiltration (1 %) 20 ml 20 ml Infiltration once; to bedside Volume: 20 dd2 ml; Route: Infiltration; Site: wound; 12:59 Follow up: Response: No adverse reaction dd2 Disposition Summary: 02/06/25 12:36 Discharge Ordered Notes: Location: Home dr5 Condition: Stable dr5 Diagnosis - Laceration without foreign body of right ring finger without damage to nail dr5 Followup: dr5 - With: Emergency Department - When: As needed - Reason: Worsening of condition Followup: dr5 - With: Private Physician - When: 7 - 10 days - Reason: Staple/Suture removal Discharge Instructions: - Discharge Summary Sheet dr5 - Laceration Care, Adult dr5 Forms: - Work release form dr5 - Medication Reconciliation Form dr5 - Patient Portal Instructions dr5 - Leadership Thank You Letter dr5 Signatures: Rocio Begum RN RN ap3 ASHA KINCAID RN RN dd2 Beka Live, CONTRACT DESIGN AGENT-C CONTRACT DESIGN AGENT-Cdr5
[2025-02-06 13:18] VITALS: TEMP 97.5; O2SAT 100
[2025-02-06 13:20] VITALS: BP 126/75
== END 2025-02-06 13:00 | disposition home or self-care (01) ==
LOC: ER 11:06
PROC: 0HQFXZZ Repair Right Hand Skin, External Approach (ICD-10-PCS; principal; 2025-02-06)
DX: S61.214A Laceration without foreign body of right ring finger without damage to nail, initial encounter (principal); W26.0XXA Contact with knife, initial encounter; Y99.0 Civilian activity done for income or pay
CPT/HCPCS: 12001; 99284; J2003